=== PATIENT | male | born 1930 | race Caucasian/White ===

== ENCOUNTER 2021-08-23 07:34 | Inpatient (IN) ==
[2021-08-23] MEDS ORDERED: IOPAMIDOL 100 ML BOTTLE IV ONE (07:35)
--- NOTE | 2021-08-23 07:47 | Emergency Department Note ---
HPI General Chief complaint: Bleeding Other Stated complaint: rectal bleeding Time Seen by Provider: 08/23/21 07:46 Source: patient Mode of arrival: wheelchair Limitations: no limitations History of Present Illness HPI Narrative: 89-year-old male presenting with rectal bleeding. Patient reports red blood mixed with stool for the last 3 days. No melena. He is also endorses diffuse abdominal pain. Denies any prior history of GI bleeding. Not on anticoagulation. No vomiting, hematemesis, fever, dysuria, or hematuria. No other complaints. Related Data Home Medications Medication Instructions Recorded Confirmed ascorbic acid (vitamin C) 500 mg 500 mg PO QDAY cap 08/21/14 08/23/21 capsule,extended release omeprazole 20 mg capsule,delayed 20 mg PO QDAY 12/28/18 08/23/21 release hydrocodone 10 mg-acetaminophen 1 tab PO Q4 08/23/21 08/23/21 325 mg tablet Previous Rx's Medication Instructions Recorded blood-glucose meter (OneTouch #1 each 04/07/17 Ultra2 Meter) blood sugar diagnostic (OneTouch #300 each 04/13/17 Ultra Test) lancets 30 gauge (OneTouch Delica #300 each 04/13/17 Lancets) compr.stocking,knee,long,x-lrg #2 each 10/31/19 metolazone 2.5 mg tablet 2.5 mg PO QDAY #90 tab 07/17/20 torsemide 20 mg tablet 20 mg PO BID PRN #90 tab 08/13/20 losartan 50 mg tablet 50 mg PO QDAY #90 tab 09/30/20 metformin 500 mg tablet,extended 500 mg PO QPM #90 tab 01/13/21 release 24 hr potassium chloride 10 mEq 10 meq PO QDAY #1 tab 03/19/21 tablet,extended release clotrimazole-betamethasone 1 1 applic TOPICAL BID 14 Days #45 g 05/22/21 %-0.05 % topical cream oxycodone-acetaminophen 10 mg-325 1 tab PO Q12H PRN #56 tab 08/11/21 mg tablet 4ww with seat #1 ea 08/19/21 loperamide 2 mg capsule 2 mg PO Q6H PRN #30 cap 08/19/21 (Anti-Diarrheal (loperamide)) mometasone 50 mcg/actuation nasal 2 spray INTRANASAL QDAY #17 g 08/19/21 spray Allergies Allergy/AdvReac Type Severity Reaction Status Date / Time cephalexin Allergy Severe syncope Verified 08/23/21 07:38 sulfamethoxazole Allergy Severe syncope Verified 08/23/21 07:38 [From ] trimethoprim [From ] Allergy Severe syncope Verified 08/23/21 07:38 melatonin AdvReac Severe Tachycardia Verified 08/23/21 07:38 NSAIDS (Non-Steroidal AdvReac Severe GI bleed Verified 08/23/21 07:38 Anti-Inflamma aspirin AdvReac Intermediate Unknown Verified 08/23/21 07:38 morphine AdvReac Intermediate Anxiety Verified 08/23/21 07:38 valacyclovir AdvReac Mild Vomiting/Di Verified 08/23/21 07:38 arrhea Review of Systems ROS ROS Narrative: Narrative: Constitutional: Denies fever or chills ENT ED: Denies throat pain Cardiovascular: Denies chest pain Respiratory: Denies shortness of breath or cough Gastrointestinal: Reports abdominal pain and hematochezia; Denies nausea, vomiting or melena Genitourinary: Denies dysuria or hematuria Musculoskeletal: Denies back pain Integumentary: Denies rash Neurological: Denies headache Psychiatric: Denies anxiety Endocrine: Denies fatigue Hematological/Lymphatic: Denies easy bruising PFSH Narrative Patient History Narrative: Narrative: Medical/Surgical/Family History All Active Problems Pneumonia (Acute) Acute lower GI bleeding (Acute) Risk for falls (Acute) Skin tear of right forearm without complication (Acute) Medicare annual wellness visit, subsequent (Acute) Trigeminal neuralgia, postherpetic (Acute) Cellulitis of right leg (Acute) Diuretics causing adverse effect in therapeutic use (Acute) Otalgia, right ear (Acute) Herpes simplex ophthalmicus (Acute) Cellulitis and abscess of left leg (Acute) Knee effusion (Acute) Fall (Acute) Knee pain (Acute) Leg ulcer, left (Acute) Medicare annual wellness visit, initial (Acute) Venous insufficiency of both lower extremities (Acute) At risk for infection associated with ventilator (Acute) Head injury (Acute) Sternum pain (Acute) CKD (chronic kidney disease) stage 3, GFR 30-59 ml/min (Chronic) Shortness of breath (Acute) Thoracic back pain (Acute) Chronic pain of right elbow (Chronic) Chronic pain (Chronic) Pain in finger of right hand (Acute) Trochanteric bursitis of left hip (Chronic) Sinusitis, acute (Acute) Leg pain, right (Acute) Chronic use of opiate drug for therapeutic purpose (Chronic) Right leg swelling (Acute) Obesity (BMI 30.0-34.9) (Chronic) Laceration of right lower leg (Acute) Edema, peripheral (Acute) Elevated serum creatinine (Acute) Stasis dermatitis of both legs (Acute) Onychomycosis (Chronic) Venous stasis (Chronic) Callus of foot (Acute) Hoarseness (Chronic) Bronchitis (Acute) Fall (Acute) Multiple contusions (Acute) Skin tear (Acute) Upper respiratory infection (Acute) ILD (interstitial lung disease) (Chronic) Pulmonary fibrosis (Chronic) CHF (congestive heart failure) (Chronic) Left foot pain (Chronic) Rib fractures (Chronic) Cough (Acute) Aseptic loosening of prosthetic joint (Chronic) Laceration of right upper extremity (Acute) Muscle spasm (Chronic) Tinea cruris (Chronic) Skin lesion of back (Chronic) Bradycardia (Chronic) Low Back Pain (Chronic) Numbness and tingling in left arm (Chronic) Diarrhea (Chronic) Pitting edema (Chronic) Occipital neuritis (Chronic) Pain in left testicle (Chronic) Neck pain (Chronic) Metabolic Syndrome X (Chronic) Actinic keratosis (Chronic) Right shoulder injury (Chronic) Sprain of shoulder, right (Chronic) Abrasion of right forearm (Acute) Greater trochanteric bursitis of right hip (Chronic) Back Pain (Chronic) Deep vein thrombosis (DVT) (Chronic) Itching (Chronic) Skin Lesion (Chronic) Right shoulder pain (Chronic) Chronic venous insufficiency (Chronic) Leg edema (Chronic) Tinnitus (Chronic) Spondylolysis, 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) Rupture long head biceps tendon (Chronic) Rotator cuff syndrome of left shoulder (Chronic) Raynauds syndrome (Chronic) Prostate hyperplasia with urinary obstruction (Chronic) Peripheral vascular disease (Chronic) Peripheral neuropathy (Chronic) Osteoarthritis of spine (Chronic 08/01/13) Metabolic syndrome X (Chronic) Displacement of lumbar intervertebral disc without myelopathy (Chronic 08/01/13) Lateral epicondylitis (Chronic 05/03/12) Insomnia (Chronic 05/03/12) Hypertension, essential (Chronic) Hyperlipidemia (Chronic) Ventral hernia, recurrent (Chronic) Incisional hernia (Chronic) Glaucoma (Chronic 06/13/13) Gastroesophageal reflux (Chronic) Foraminal stenosis of lumbar region (Chronic) Environmental allergies (Chronic 12/02/12) Edema (Chronic 06/28/12) Dysphonia (Chronic) Diverticulosis of colon (Chronic) Diabetes mellitus, type II (Chronic) Degenerative joint disease (Chronic) Deep vein thrombosis (DVT) (Chronic 07/18/14) Kidney cysts (Chronic) Colon polyp (Chronic 08/09/14) Colon adenoma (Chronic) Bursitis of hip (Chronic) Garcia's esophagus (Chronic) Atrophic kidney (Chronic) Atrial fibrillation (Chronic) Anemia (Chronic) 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 Actinic keratitis (07/04/14) 07-04-2014-Right 2-3 dorsal web space, 11-08-2012-nose, 06-11-2013- right side of nose Actinic keratosis One lesion right ear treated with liquid nitrogen Acute narcotic withdrawal Anemia D/T diverticular bleed Aseptic loosening of prosthetic joint Suspected loosening of right radial head prosthesis At risk for infection associated with ventilator Atrial fibrillation Frequent PVCs. Atrophic kidney Left Garcia's esophagus Bradycardia [place] of the RLE Bursitis of hip Carpal tunnel syndrome, bilateral Cellulitis 09/11/14 left leg CHF (congestive heart failure) Diastolic Continue current diuretics, which is metolazone 2.5 mg daily followed by torsemide 20 mg twice daily Consider getting him back in with cardiology, as he has not seen them for nearly 2 years Chronic pain of right elbow Patient states worsening. Multiple tender points. Seems that he has fibromyalgia, and increased nociception likely due to long- term opiate use for pain. X-rays from a year ago showed possible loosening of the prosthesis of the right elbow. I do not have the x-rays from 2 months ago, but will request the records. MR right elbow without contrast ordered today. Continue massage therapy. Recommend physical therapy, patient refuses. Continue pain management. Chronic use of opiate drug for therapeutic purpose Chronic venous insufficiency Bilateral legs CKD (chronic kidney disease) stage 3, GFR 30-59 ml/min With acute mild elevation of creatinine in ER 2 weeks ago We will recheck renal panel today and consider adjusting diuretics Colon adenoma 08/09/14 Colon polyp (08/09/14) TA-Dr. Lazcano Cough Cyst (06/13/13) 1-cm cyst on perineum Deep vein thrombosis (DVT) (07/18/14) Bilateral Deep vein thrombosis (DVT) H/O Degenerative joint disease Dehydration Diabetes mellitus, type II Well-controlled on metformin ER 500 mg every afternoon Diabetic diet recommended Follow-up with ophthalmology frequently Diabetic foot exam today. He does have numbness, callus, and foot deformity. His often checks his feet for wounds. He sees podiatry frequently for callus and toenail care. Check A1c and HAWK today Diarrhea Possibly post-cholecystectomy associated Displacement of lumbar intervertebral disc without myelopathy (08/01/13) Diverticulosis of colon history of hemorrhage Dysphonia Edema (06/28/12) Environmental allergies (12/02/12) possible long-term history of morphine allergy Epidermoid cyst Epididymitis, left mild Escherichia coli (E. coli) infection (12/14/13) Dr. House Fall Foraminal stenosis of lumbar region L3-4 Gastroesophageal reflux Gastrointestinal tract hemorrhage (06/13/13) Diverticular bleed. Severe. Glaucoma (06/13/13) Herpes simplex ophthalmicus Hyperlipidemia Hypertension, essential Well-controlled on losartan 50 mg daily ILD (interstitial lung disease) Mild. Chest x-ray 02/07/2018. Ileus 1. opioid induced ileus-managed with laxatives and tapering opioids. Patient doing well. discharge home in stable state. 09/21/14. 2. Intractable nausea vomiting secondary to opioids. Resolved 3DM type II stable on home meds 4. DJD on home meds 5. History of A. fib on anticoagulation 6. History of CAD remains stable Ileus, postoperative (12/14/13) Now resolved- Dr. House Incisional hernia Insomnia (05/03/12) Itching Kidney cysts Multiple on right kidney Knee effusion Improved per patient Knee pain Stop Dilaudid, resume chronic pain medications Patient should have 3 Dilaudid left in case of breakthrough pain in the middle of the night Laceration of arm Approximately 3 inch skin slip left upper arm. Clean. Not infected at present Lateral epicondylitis (05/03/12) Leg edema Compression stockings recommended daily. Elevate legs as much as possible, above the level of the heart. Avoid sodium in diet Increase torsemide to 60 mg daily metolazone to 5 mg daily. Increase potassium chloride to 20 mEq daily. We will follow-up via phone in 3 days. Low Back Pain Significant degenerative disc disease. Medicare annual wellness visit, initial Medicare annual wellness visit, subsequent Metabolic syndrome X Metabolic Syndrome X Nausea and vomiting Neck pain Osteoarthritic and myofascial Obesity (BMI 30.0-34.9) Occipital neuritis Greater occipital neuritis. Left side greater than right. Osteoarthritis of spine (08/01/13) Severe cervical and LS spine Otalgia, right ear Pain in finger of right hand X-ray right hand Pancreatitis (12/14/13) Biliary Pancreatitis -Dr. Jiang Perineal abscess (06/29/13) Peripheral neuropathy Diabetic Peripheral vascular disease Pitting edema Bilateral lower extremities Pleural effusion (06/28/12) Prostate hyperplasia with urinary obstruction Pulmonary fibrosis Mild. Raynauds syndrome Remote - left 3rd finger Rib fractures Right sixth and seventh ribs anterolaterally Right shoulder injury Right shoulder pain impingement and osteoarthritis. Rotator cuff syndrome of left shoulder chronic Rupture long head biceps tendon Sepsis H/O Skin Lesion Cystic structure right mid back laterally. 1.1 x 1.2 cm. Excised. Skin tear of right forearm without complication Spondylolysis, lumbosacral (08/08/13) Dr. 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 Squamous cell carcinoma in situ. Tinnitus Venous insufficiency of both lower extremities Ventral hernia, recurrent Vomiting Surgical History H/O colectomy (06/12/04) Left with primary anastomosis for diverticular bleed H/O colonoscopy (08/09/14) 08-09-2014-TA 03-21-2011-Hemorrhoids. Hyperplastic appearing polyps. Diverticula. H/O elbow surgery Dr. Ballesteros H/O esophagogastroduodenoscopy (12/23/10) Garcia's esophagus. Indefinite for dysplasia. Focal eosinophils present within squamous mucosa. H/O prior ablation treatment 02/05/17 Right greater saphenous vein ablation H/O repair of left rotator cuff (03/11/04) H/O repair of right rotator cuff 2011 Dr. Avery H/O thumb surgery (08/08/13) Dr. Ballesteros H/O toe surgery Right hammer toe surgery History of carpal tunnel surgery of right wrist History of cataract surgery Bilateral Hx of cholecystectomy (12/20/13) Open- Dr. Loya S/P IVC filter (07/19/14) S/P PICC central line placement (06/04/04) Status post incision and drainage (06/23/13) Perianal abcess Family History Father , at 61 Acute myocardial infarction Uncle Malignant neoplasm of prostate Social History Smoking Status: Former smoker Alcohol Intake Frequency: holiday/special occasion only Substance Use: does not use Exam Narrative Narrative: Narrative: General Limitations: no limitations General appearance: Present alert and in no apparent distress Head Head: Present atraumatic and normocephalic Eye Eye: Present normal appearance and EOMI; Absent scleral icterus or conjunctival injection ENT ENT: Present mucous membranes moist Neck Neck: Present trachea midline Chest Chest: Present symmetric chest wall rise Respiratory Respiratory: Present normal lung sounds bilaterally; Absent respiratory distress, rales/crackles, wheezes, stridor or accessory muscle use Cardiovascular Cardiovascular: Present regular rate and normal rhythm; Absent systolic murmur or diastolic murmur Adbominal Abdominal: Present soft and tenderness (Diffuse abdominal tenderness to exam, mostly in the periumbilical area); Absent distention, guarding, rebound, rigidity or organomegaly Rectal Rectal: Present normal rectal tone, heme (+) stool, bloody stool and other (terri-anal irritation noted); Absent hemorrhoids, mass or prostate tenderness Extremities Extremities: Present normal inspection; Absent pretibial edema Back Back: Absent CVA tenderness (R) or CVA tenderness (L) Neurological Neurological: Present alert and oriented X3; Absent motor sensory deficit Psychiatric Psychiatric: Present normal affect and normal mood Skin Skin: Present warm (WNL) and dry Course Consultations Consultation #1: Dr. Cuadra, general surgery Time: 13:00 Consultation #2: Dr. Tomas, hospitalist Time: 14:00 Vital Signs Vital signs: Vital Signs Pulse Rate 68 08/23/21 07:35 Respiratory Rate 16 08/23/21 07:35 Blood Pressure 147/93 08/23/21 07:35 Pulse Oximetry (%) 94 08/23/21 07:35 Temperature 97.4 F 08/23/21 15:22 Pulse Rate 76 08/23/21 15:22 Respiratory Rate 22 08/23/21 15:22 Blood Pressure 120/74 08/23/21 15:22 Pulse Oximetry (%) 94 08/23/21 15:22 MDM MDM Narrative Medical decision making narrative: 89-year-old male presenting with rectal bleeding and abdominal pain. Vital signs initially stable but he was noted to desat to the high 80s on RA. Placed on O2 via NC. He does have gross blood on rectal exam. Will obtain labs, CT, and reevaluate. CT abdomen with no evidence of acute bleeding. Hemoglobin is 12.5 which appears down from his baseline. Chest x-ray appears to show bilateral pneumonia. IV Zosyn ordered. I spoke with Dr. Cuadra of general surgery who is agreeable to consult on the patient for his likely lower GI bleeding. Patient endorsed to Dr. Tomas, hospitalist, for admission. Lab Data Lab results reviewed: Yes I reviewed the patient's lab results. Result diagrams: 08/23/21 08:19 08/23/21 08:19 Labs: Lab Results 08/23/21 08/23/21 08/23/21 Range/Units 08:09 08:09 08:09 WBC (4.5-11.0) K/mcL RBC (4.63-6.08) M/mcL Hgb (13.7-17.5) g/dL Hct (40.1-51.0) % MCV (80.0-100.0) fL MCH (26.0-34.0) pg MCHC (31.0-36.0) g/dL RDW (11.5-14.5) % Plt Count (140-440) K/mcL MPV (7.4-10.4) fL Neut % (Auto) (38.0-78.0) % Lymph % (Auto) (15.5-49.0) % Villalba % (Auto) (1.0-12.0) % Eos % (Auto) (0.0-7.0) % Baso % (Auto) (0.0-2.0) % Lymph # (Auto) (1.50-4.80) K/mcL Villalba # (Auto) (0.10-0.90) K/mcL Eos # (Auto) (0.00-0.70) K/mcL Baso # (Auto) (0.00-0.30) K/mcL Seg Neutrophils % 65 (38-78) % Band Neutrophils % 11 H (0-10) % Lymphocytes % 9 L (15-49) % Monocytes % (Manual) 12 (1-12) % Eosinophils % (Manual) 3 (0-7) % Absolute Neutrophils (1.80-8.00) K/mcL Platelet Estimate Normal (Normal) RBC Morphology Normal (Normal) PT (11.9-14.5) sec INR (0.9-1.1) APTT (20.0-37.0) sec Sodium (133-145) mmol/L Potassium (3.3-5.1) mmol/L Chloride (96-108) mmol/L Carbon Dioxide (22-30) mmol/L Anion Gap (8.0-16.0) BUN (8-23) mg/dL Creatinine (0.7-1.2) mg/dL POC Creatinine GFR Calculation Glucose (70-105) mg/dL Calcium (8.6-10.4) mg/dL Total Bilirubin (0.1-1.0) mg/dL AST (<40) U/L ALT (<40) U/L Alkaline Phosphatase (39-117) U/L C-Reactive Protein 2.80 H (0.03-0.80) mg/dL Total Protein (5.9-8.4) gm/dL Albumin (3.2-5.2) gm/dL Globulin (2.2-3.7) gm/dL Albumin/Globulin Ratio (1.0-2.3) Lipase (7-60) U/L Procalcitonin 0.11 H (<0.10) ng/mL 08/23/21 08/23/21 08/23/21 Range/Units 08:19 08:19 08:19 WBC 9.2 (4.5-11.0) K/mcL RBC 4.02 L (4.63-6.08) M/mcL Hgb 12.5 L (13.7-17.5) g/dL Hct 39.3 L (40.1-51.0) % MCV 97.8 (80.0-100.0) fL MCH 31.1 (26.0-34.0) pg MCHC 31.8 (31.0-36.0) g/dL RDW 13.2 (11.5-14.5) % Plt Count 287 (140-440) K/mcL MPV 9.6 (7.4-10.4) fL Neut % (Auto) 72.0 (38.0-78.0) % Lymph % (Auto) 10.6 L (15.5-49.0) % Villalba % (Auto) 13.2 H (1.0-12.0) % Eos % (Auto) 3.7 (0.0-7.0) % Baso % (Auto) 0.5 (0.0-2.0) % Lymph # (Auto) 0.97 L (1.50-4.80) K/mcL Villalba # (Auto) 1.21 H (0.10-0.90) K/mcL Eos # (Auto) 0.34 (0.00-0.70) K/mcL Baso # (Auto) 0.05 (0.00-0.30) K/mcL Seg Neutrophils % (38-78) % Band Neutrophils % (0-10) % Lymphocytes % (15-49) % Monocytes % (Manual) (1-12) % Eosinophils % (Manual) (0-7) % Absolute Neutrophils 6.59 (1.80-8.00) K/mcL Platelet Estimate (Normal) RBC Morphology (Normal) PT 15.5 H (11.9-14.5) sec INR 1.2 H (0.9-1.1) APTT 35.5 (20.0-37.0) sec Sodium 137 (133-145) mmol/L Potassium 4.3 (3.3-5.1) mmol/L Chloride 101 (96-108) mmol/L Carbon Dioxide 26 (22-30) mmol/L Anion Gap 10.0 (8.0-16.0) BUN 18 (8-23) mg/dL Creatinine 1.5 H (0.7-1.2) mg/dL POC Creatinine GFR Calculation 41 Glucose 125 H (70-105) mg/dL Calcium 8.6 (8.6-10.4) mg/dL Total Bilirubin 0.4 (0.1-1.0) mg/dL AST 11 (<40) U/L ALT < 5 (<40) U/L Alkaline Phosphatase 56 (39-117) U/L C-Reactive Protein (0.03-0.80) mg/dL Total Protein 6.2 (5.9-8.4) gm/dL Albumin 3.1 L (3.2-5.2) gm/dL Globulin 3.1 (2.2-3.7) gm/dL Albumin/Globulin Ratio 1.0 (1.0-2.3) Lipase (7-60) U/L Procalcitonin (<0.10) ng/mL 08/23/21 08/23/21 08/23/21 Range/Units 08:19 08:19 08:32 WBC (4.5-11.0) K/mcL RBC (4.63-6.08) M/mcL Hgb (13.7-17.5) g/dL Hct (40.1-51.0) % MCV (80.0-100.0) fL MCH (26.0-34.0) pg MCHC (31.0-36.0) g/dL RDW (11.5-14.5) % Plt Count (140-440) K/mcL MPV (7.4-10.4) fL Neut % (Auto) (38.0-78.0) % Lymph % (Auto) (15.5-49.0) % Villalba % (Auto) (1.0-12.0) % Eos % (Auto) (0.0-7.0) % Baso % (Auto) (0.0-2.0) % Lymph # (Auto) (1.50-4.80) K/mcL Villalba # (Auto) (0.10-0.90) K/mcL Eos # (Auto) (0.00-0.70) K/mcL Baso # (Auto) (0.00-0.30) K/mcL Seg Neutrophils % (38-78) % Band Neutrophils % (0-10) % Lymphocytes % (15-49) % Monocytes % (Manual) (1-12) % Eosinophils % (Manual) (0-7) % Absolute Neutrophils (1.80-8.00) K/mcL Platelet Estimate (Normal) RBC Morphology (Normal) PT (11.9-14.5) sec INR (0.9-1.1) APTT (20.0-37.0) sec Sodium (133-145) mmol/L Potassium (3.3-5.1) mmol/L Chloride (96-108) mmol/L Carbon Dioxide (22-30) mmol/L Anion Gap (8.0-16.0) BUN (8-23) mg/dL Creatinine (0.7-1.2) mg/dL POC Creatinine 1.4 H GFR Calculation Glucose (70-105) mg/dL Calcium (8.6-10.4) mg/dL Total Bilirubin (0.1-1.0) mg/dL AST (<40) U/L ALT (<40) U/L Alkaline Phosphatase (39-117) U/L C-Reactive Protein (0.03-0.80) mg/dL Total Protein (5.9-8.4) gm/dL Albumin (3.2-5.2) gm/dL Globulin (2.2-3.7) gm/dL Albumin/Globulin Ratio (1.0-2.3) Lipase 16 (7-60) U/L Procalcitonin (<0.10) ng/mL ED POC Tests ED POC Tests: [place] - SARS Antigen Negative Radiology Data Radiology results reviewed: Yes I reviewed the patient's radiology results. Radiology results narrative: CXR: bilateral pneumonia, per my read Ordering Physician:Brennan Moss M.D. Date of Service:08/23/21 Procedure(s):XR chest 2V CLINICAL INFORMATION: Pneumonia COMPARISON: Two-view chest 05/04/2018 and portable chest 08/01/2021 TECHNIQUE: PA and Lateral views FINDINGS: Mild cardiomegaly is unchanged. Mediastinum and pulmonary vessels are normal. Moderate patchy infiltrates have progressed considerably in both mid and lower lungs since the comparison x-ray three weeks ago. Small bilateral pleural effusions appreciated. IMPRESSION: Moderate patchy infiltrates in both mid and lower lungs progressing considerably since chest x-ray three weeks ago. Consider aspiration or, less likely, infection. Interpreted and Authenticated by: Lm Brown 08/23/21 Ordering Physician:Brennan Moss M.D. Date of Service:08/23/21 Procedure(s):CT abdomen pelvis w con CLINICAL INFORMATION: GI bleed COMPARISON: Chest CT 05/30/2019.. Pelvic CT 08/25/2011 TECHNIQUE: Following enteric contrast, 80 cc of Isovue-[id number] were injected intravenously, and 60 seconds later, 0.625 mm helical slices were obtained from the mid heart through the subtrochanteric regions. Following reconstruction, 2.5 mm sagittal, coronal and axial reformatted images were processed and reviewed at bone, lung and soft tissue windows. Five minutes later, 0.625 mm helical slices were obtained from the mid heart through the kidneys and viewed at soft tissue windows.The exam was performed using radiation dose optimization techniques including, but not limited to, automated exposure control, adjustment of the mA and/or kV according to patient size and use of iterative reconstruction technique. FINDINGS: The lung bases show moderate consolidated infiltrates scattered within the visualized lower lobes, right middle lobe and lingula. Tiny bilateral pleural effusions noted. The visualized heart is moderately enlarged and there is calcification in the mitral valve. Abdominal images show mild fatty change within the liver, but no focal hepatic lesion. The gallbladder is surgically absent. Common bile duct is mildly dilated-12 mm due to postcholecystectomy state. A cm periampullary diverticulum invaginates the medial pancreatic head contributing to extrinsic impingement of the intrapancreatic common bile duct. The pancreas is markedly atrophic and there are multiple small cysts within the pancreatic parenchyma ranging up to 2.9 cm. These show slight increase in size and number from the comparison examination 05/30/2019. The spleen, both adrenal glands and aorta, including aortic branches, are normal in size configuration and attenuation without focal lesion. Moderate atrophy of the left kidney noted: 5.5 cm in length. There is compensatory hypertrophy of the right kidney which spans 13 cm. There is scattered cysts within both kidneys, predominantly on the right, which range up to 4.5 cm. There are two isointense lesions projecting from the lateral cortex mid right kidney: 14 and 5 mm respectively. These are likely hyperdense cysts but may require ultrasound to be certain they're not solid. Nonobstructing stones seen within the calyces of the right kidney: 4.8 mm superior calyx 8 mm mid calyx, 2 mm mid calyx. There are no left-sided stones. Mild left hydronephrosis appreciated ostensibly related mild congenital UPJ narrowing. The prostate is mildly enlarged spanning 4.7 cm in diameter. Asymmetric enlargement of the right peripheral zone was also noted on pelvic CT 08/25/2011. This is likely benign hypertrophy. Urinary bladder is unremarkable. Small ureterocele seen in the distal left ureteral insertion. Stomach, small bowel, appendix and large bowel are grossly normal. No evidence for GI bleed. Bone windows show no osseous abnormality IMPRESSION: 1. No CT evidence for GI blood loss source. 2. Moderate alveolar infiltrates scattered within the both visualized lower, right middle lobe and lingula. 3. Marked pancreatic atrophy with multiple pancreatic cysts which show slight increase in size and number from a comparison chest CT from 05/30/2019. This is likely clinically insignificant this patient's age. 4. Small nonobstructing stones the calyces of the right kidney ranging up to 8 mm. Scattered simple cysts in both kidneys. Two isointense lesions 14 and 5 mm lateral mid right kidney. These are likely hyperdense cysts, but exclusion of solid lesion would require ultrasound. 5. Moderate atrophy left kidney with compensatory hypertrophy of the right kidney. Mild left hydronephrosis noted. 6. Mild prostate enlargement with asymmetric enlargement of the right peripheral zone. This is unchanged 2011 Interpreted and Authenticated by: Lm Brown 08/23/21 Discharge Plan Patient/Caregiver Discharge Instructions Pt seen by AGRONOMY MANAGER/PA only: No Clinical Impression: Pneumonia, Acute lower GI bleeding Patient Disposition: Xfer As Inpt ([facility]) Condition: Fair Discharge Date/Time: 08/23/21 15:12
[2021-08-23] MEDS ORDERED: 0.9 % SODIUM CHLORIDE 250 ML IV SCH (08:15)
[2021-08-23 09:03] LABS: Basophils # (Auto) 0.05 K/mcL (0.00-0.30); Basophils % (Auto) 0.5 % (0.0-2.0); Eosinophils # (Auto) 0.34 K/mcL (0.00-0.70); Eosinophils % (Auto) 3.7 % (0.0-7.0); Hematocrit 39.3 % (40.1-51.0); Hemoglobin 12.5 g/dL (13.7-17.5); Lymphocytes # (Auto) 0.97 K/mcL (1.50-4.80); Lymphocytes % (Auto) 10.6 % (15.5-49.0); Mean Cell Volume 97.8 fL (80.0-100.0); Mean Corpuscular HGB Conc 31.8 g/dL (31.0-36.0); Mean Platelet Volume 9.6 fL (7.4-10.4); Monocytes # (Auto) 1.21 K/mcL (0.10-0.90); Monocytes % (Auto) 13.2 % (1.0-12.0); Platelet Count 287 K/mcL (140-440); RBC 4.02 M/mcL (4.63-6.08); Red Cell Distribution Width 13.2 % (11.5-14.5); WBC 9.2 K/mcL (4.5-11.0)
[2021-08-23 09:12] LABS: INR 1.2 (0.9-1.1); Partial Thromboplastin Time 35.5 sec (20.0-37.0); Prothrombin Time 15.5 sec (11.9-14.5)
[2021-08-23] MEDS ORDERED: 0.9 % SODIUM CHLORIDE 1,000 ML IV ONE ×2 (09:17→09:18)
[2021-08-23 09:24] LABS: ALT/SGPT < 5 U/L (<40); AST/SGOT 11 U/L (<40); Albumin 3.1 gm/dL (3.2-5.2); Alkaline Phosphatase 56 U/L (39-117); Bilirubin,Total 0.4 mg/dL (0.1-1.0); Blood Urea Nitrogen 18 mg/dL (8-23); Calcium 8.6 mg/dL (8.6-10.4); Carbon Dioxide 26 mmol/L (22-30); Chloride 101 mmol/L (96-108); Globulin 3.1 gm/dL (2.2-3.7); Glomerular Filtration Rate 41; Glucose 125 mg/dL (70-105)
[2021-08-23] MEDS ORDERED: PIPERACILLIN SODIUM/TAZOBACTAM 3.375 GM in DEXTROSE 5% IN WATER 50 ML IV ONE (12:42)
[2021-08-23] MEDS ORDERED: HYDROcodone/APAP 5/325MG TABLET PO ONE (13:35)
--- NOTE | 2021-08-23 13:45 | Internal Med History&Physical ---
HPI History of Present Illness Patient information: Note initiated : 08/23/21 at 1:36 pm Service Date, if different from initiated Date: [] Patient: Omar Leal 89 y/o M admitted on for rectal bleeding. Chief Complaint: [] History of present illness: Mr. Leal is a 89 year old M Presents today with rectal bleeding. Per the he seems to be better historian and her . She states that yesterday he developed bleeding while he was having bowel movement yesterday and she said it was mixed in with the stool. She said it is neither bright red or melanotic. He complains of some generalized achy abdominal pain. He had another bloody bowel movement this morning and then another 1 not too long after that. CT scan of the abdomen was done which I believe did not show anything significant although waiting for the official report. He is also has recently had COVID and has been getting over that however he has had a worsening cough for the past few days. He denies shortness of breath. Chest x-ray in the ED showed bilateral pneumonia and he was hypoxic in the 80s on room air. Cough is productive of thick green phlegm. He is generally weak and seems to have been slowly declining over the past year. He uses a cane or walker to ambulate but has been using the walker more lately. Dr. Cuadra was contacted for the GI bleed regarding endoscopy. Patient started on antibiotics. Review of Systems: Pertinent positives as above. Denies headache/fever/chills/nausea/vomiting/chest or abdominal pain/dyspnea. Remaining 10 point review of system reviewed negative PFSH PFSH All Active Problems Risk for falls (Acute) Skin tear of right forearm without complication (Acute) Medicare annual wellness visit, subsequent (Acute) Trigeminal neuralgia, postherpetic (Acute) Cellulitis of right leg (Acute) Diuretics causing adverse effect in therapeutic use (Acute) Otalgia, right ear (Acute) Herpes simplex ophthalmicus (Acute) Cellulitis and abscess of left leg (Acute) Knee effusion (Acute) Fall (Acute) Knee pain (Acute) Leg ulcer, left (Acute) Medicare annual wellness visit, initial (Acute) Venous insufficiency of both lower extremities (Acute) At risk for infection associated with ventilator (Acute) Head injury (Acute) Sternum pain (Acute) CKD (chronic kidney disease) stage 3, GFR 30-59 ml/min (Chronic) Shortness of breath (Acute) Thoracic back pain (Acute) Chronic pain of right elbow (Chronic) Chronic pain (Chronic) Pain in finger of right hand (Acute) Trochanteric bursitis of left hip (Chronic) Sinusitis, acute (Acute) Leg pain, right (Acute) Chronic use of opiate drug for therapeutic purpose (Chronic) Right leg swelling (Acute) Obesity (BMI 30.0-34.9) (Chronic) Laceration of right lower leg (Acute) Edema, peripheral (Acute) Elevated serum creatinine (Acute) Stasis dermatitis of both legs (Acute) Onychomycosis (Chronic) Venous stasis (Chronic) Callus of foot (Acute) Hoarseness (Chronic) Bronchitis (Acute) Fall (Acute) Multiple contusions (Acute) Skin tear (Acute) Upper respiratory infection (Acute) ILD (interstitial lung disease) (Chronic) Pulmonary fibrosis (Chronic) CHF (congestive heart failure) (Chronic) Left foot pain (Chronic) Rib fractures (Chronic) Cough (Acute) Aseptic loosening of prosthetic joint (Chronic) Laceration of right upper extremity (Acute) Muscle spasm (Chronic) Tinea cruris (Chronic) Skin lesion of back (Chronic) Bradycardia (Chronic) Low Back Pain (Chronic) Numbness and tingling in left arm (Chronic) Diarrhea (Chronic) Pitting edema (Chronic) Occipital neuritis (Chronic) Pain in left testicle (Chronic) Neck pain (Chronic) Metabolic Syndrome X (Chronic) Actinic keratosis (Chronic) Right shoulder injury (Chronic) Sprain of shoulder, right (Chronic) Abrasion of right forearm (Acute) Greater trochanteric bursitis of right hip (Chronic) Back Pain (Chronic) Deep vein thrombosis (DVT) (Chronic) Itching (Chronic) Skin Lesion (Chronic) Right shoulder pain (Chronic) Chronic venous insufficiency (Chronic) Leg edema (Chronic) Tinnitus (Chronic) Spondylolysis, 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) Rupture long head biceps tendon (Chronic) Rotator cuff syndrome of left shoulder (Chronic) Raynauds syndrome (Chronic) Prostate hyperplasia with urinary obstruction (Chronic) Peripheral vascular disease (Chronic) Peripheral neuropathy (Chronic) Osteoarthritis of spine (Chronic 08/01/13) Metabolic syndrome X (Chronic) Displacement of lumbar intervertebral disc without myelopathy (Chronic 08/01/13) Lateral epicondylitis (Chronic 05/03/12) Insomnia (Chronic 05/03/12) Hypertension, essential (Chronic) Hyperlipidemia (Chronic) Ventral hernia, recurrent (Chronic) Incisional hernia (Chronic) Glaucoma (Chronic 06/13/13) Gastroesophageal reflux (Chronic) Foraminal stenosis of lumbar region (Chronic) Environmental allergies (Chronic 12/02/12) Edema (Chronic 06/28/12) Dysphonia (Chronic) Diverticulosis of colon (Chronic) Diabetes mellitus, type II (Chronic) Degenerative joint disease (Chronic) Deep vein thrombosis (DVT) (Chronic 07/18/14) Kidney cysts (Chronic) Colon polyp (Chronic 08/09/14) Colon adenoma (Chronic) Bursitis of hip (Chronic) Garcia's esophagus (Chronic) Atrophic kidney (Chronic) Atrial fibrillation (Chronic) Anemia (Chronic) 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 Actinic keratitis (07/04/14) 07-04-2014-Right 2-3 dorsal web space, 11-08-2012-nose, 06-11-2013- right side of nose Actinic keratosis One lesion right ear treated with liquid nitrogen Acute narcotic withdrawal Anemia D/T diverticular bleed Aseptic loosening of prosthetic joint Suspected loosening of right radial head prosthesis At risk for infection associated with ventilator Atrial fibrillation Frequent PVCs. Atrophic kidney Left Garcia's esophagus Bradycardia [place] of the RLE Bursitis of hip Carpal tunnel syndrome, bilateral Cellulitis 09/11/14 left leg CHF (congestive heart failure) Diastolic Continue current diuretics, which is metolazone 2.5 mg daily followed by torsemide 20 mg twice daily Consider getting him back in with cardiology, as he has not seen them for nearly 2 years Chronic pain of right elbow Patient states worsening. Multiple tender points. Seems that he has fibromyalgia, and increased nociception likely due to long- term opiate use for pain. X-rays from a year ago showed possible loosening of the prosthesis of the right elbow. I do not have the x-rays from 2 months ago, but will request the records. MR right elbow without contrast ordered today. Continue massage therapy. Recommend physical therapy, patient refuses. Continue pain management. Chronic use of opiate drug for therapeutic purpose Chronic venous insufficiency Bilateral legs CKD (chronic kidney disease) stage 3, GFR 30-59 ml/min With acute mild elevation of creatinine in ER 2 weeks ago We will recheck renal panel today and consider adjusting diuretics Colon adenoma 08/09/14 Colon polyp (08/09/14) TA-Dr. Lazcano Cough Cyst (06/13/13) 1-cm cyst on perineum Deep vein thrombosis (DVT) (07/18/14) Bilateral Deep vein thrombosis (DVT) H/O Degenerative joint disease Dehydration Diabetes mellitus, type II Well-controlled on metformin ER 500 mg every afternoon Diabetic diet recommended Follow-up with ophthalmology frequently Diabetic foot exam today. He does have numbness, callus, and foot deformity. His often checks his feet for wounds. He sees podiatry frequently for callus and toenail care. Check A1c and HAWK today Diarrhea Possibly post-cholecystectomy associated Displacement of lumbar intervertebral disc without myelopathy (08/01/13) Diverticulosis of colon history of hemorrhage Dysphonia Edema (06/28/12) Environmental allergies (12/02/12) possible long-term history of morphine allergy Epidermoid cyst Epididymitis, left mild Escherichia coli (E. coli) infection (12/14/13) Dr. House Fall Foraminal stenosis of lumbar region L3-4 Gastroesophageal reflux Gastrointestinal tract hemorrhage (06/13/13) Diverticular bleed. Severe. Glaucoma (06/13/13) Herpes simplex ophthalmicus Hyperlipidemia Hypertension, essential Well-controlled on losartan 50 mg daily ILD (interstitial lung disease) Mild. Chest x-ray 02/07/2018. Ileus 1. opioid induced ileus-managed with laxatives and tapering opioids. Patient doing well. discharge home in stable state. 09/21/14. 2. Intractable nausea vomiting secondary to opioids. Resolved 3DM type II stable on home meds 4. DJD on home meds 5. History of A. fib on anticoagulation 6. History of CAD remains stable Ileus, postoperative (12/14/13) Now resolved- Dr. House Incisional hernia Insomnia (05/03/12) Itching Kidney cysts Multiple on right kidney Knee effusion Improved per patient Knee pain Stop Dilaudid, resume chronic pain medications Patient should have 3 Dilaudid left in case of breakthrough pain in the middle of the night Laceration of arm Approximately 3 inch skin slip left upper arm. Clean. Not infected at present Lateral epicondylitis (05/03/12) Leg edema Compression stockings recommended daily. Elevate legs as much as possible, above the level of the heart. Avoid sodium in diet Increase torsemide to 60 mg daily metolazone to 5 mg daily. Increase potassium chloride to 20 mEq daily. We will follow-up via phone in 3 days. Low Back Pain Significant degenerative disc disease. Medicare annual wellness visit, initial Medicare annual wellness visit, subsequent Metabolic syndrome X Metabolic Syndrome X Nausea and vomiting Neck pain Osteoarthritic and myofascial Obesity (BMI 30.0-34.9) Occipital neuritis Greater occipital neuritis. Left side greater than right. Osteoarthritis of spine (08/01/13) Severe cervical and LS spine Otalgia, right ear Pain in finger of right hand X-ray right hand Pancreatitis (12/14/13) Biliary Pancreatitis -Dr. Jiang Perineal abscess (06/29/13) Peripheral neuropathy Diabetic Peripheral vascular disease Pitting edema Bilateral lower extremities Pleural effusion (06/28/12) Prostate hyperplasia with urinary obstruction Pulmonary fibrosis Mild. Raynauds syndrome Remote - left 3rd finger Rib fractures Right sixth and seventh ribs anterolaterally Right shoulder injury Right shoulder pain impingement and osteoarthritis. Rotator cuff syndrome of left shoulder chronic Rupture long head biceps tendon Sepsis H/O Skin Lesion Cystic structure right mid back laterally. 1.1 x 1.2 cm. Excised. Skin tear of right forearm without complication Spondylolysis, lumbosacral (08/08/13) Dr. 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 Squamous cell carcinoma in situ. Tinnitus Venous insufficiency of both lower extremities Ventral hernia, recurrent Vomiting Surgical History H/O colectomy (06/12/04) Left with primary anastomosis for diverticular bleed H/O colonoscopy (08/09/14) 08-09-2014-TA 03-21-2011-Hemorrhoids. Hyperplastic appearing polyps. Diverticula. H/O elbow surgery Dr. Ballesteros H/O esophagogastroduodenoscopy (12/23/10) Garcia's esophagus. Indefinite for dysplasia. Focal eosinophils present within squamous mucosa. H/O prior ablation treatment 02/05/17 Right greater saphenous vein ablation H/O repair of left rotator cuff (03/11/04) H/O repair of right rotator cuff 2011 Dr. Avery H/O thumb surgery (08/08/13) Dr. Ballesteros H/O toe surgery Right hammer toe surgery History of carpal tunnel surgery of right wrist History of cataract surgery Bilateral Hx of cholecystectomy (12/20/13) Open- Dr. Loya S/P IVC filter (07/19/14) S/P PICC central line placement (06/04/04) Status post incision and drainage (06/23/13) Perianal abcess Family History Father , at 61 Acute myocardial infarction Uncle Malignant neoplasm of prostate Social History household members: spouse housing: house lives independently: Yes marital status: education level: high school service: No occupational status: retired occupation: rancher occupational exposures/hazards: Yes pets and animals: Yes other: Children -4 physical activity: none smoking status: Former smoker quit date: 03/08/1962 pack-years: 10 alcohol intake frequency: holiday/special occasion only substance use type: does not use MEDS/ALLERGIES Home Medications and Allergies Home Medications Medication Instructions Recorded Confirmed Type ascorbic acid (vitamin C) 500 mg 500 mg PO QDAY cap 08/21/14 08/19/21 History capsule,extended release blood-glucose meter (OneTouch #1 each 04/07/17 08/19/21 Rx Ultra2 Meter) blood sugar diagnostic (OneTouch #300 each 04/13/17 08/19/21 Rx Ultra Test) lancets 30 gauge (OneTouch Delica #300 each 04/13/17 08/19/21 Rx Lancets) omeprazole 20 mg capsule,delayed 20 mg PO QDAY 12/28/18 08/19/21 History release triamcinolone acetonide 0.1 % 1 applic TOPICAL BID #30 g 06/14/19 08/19/21 Rx topical cream compr.stocking,knee,long,x-lrg #2 each 10/31/19 08/19/21 Rx honey 100 % topical paste 1 applic TOPICAL BID #44 ml 11/07/19 08/19/21 Rx (MediHoney (honey)) metolazone 2.5 mg tablet 2.5 mg PO QDAY #90 tab 07/17/20 08/19/21 Rx torsemide 20 mg tablet 20 mg PO BID PRN #90 tab 08/13/20 08/19/21 Rx losartan 50 mg tablet 50 mg PO QDAY #90 tab 09/30/20 08/19/21 Rx metformin 500 mg tablet,extended 500 mg PO QPM #90 tab 01/13/21 08/19/21 Rx release 24 hr potassium chloride 10 mEq 10 meq PO QDAY #1 tab 03/19/21 08/19/21 Rx tablet,extended release lidocaine 5 % topical patch 1 patch TOPICAL QDAY #15 ea 05/19/21 08/19/21 Rx (Lidoderm) clotrimazole-betamethasone 1 1 applic TOPICAL BID 14 Days #45 g 05/22/21 08/19/21 Rx %-0.05 % topical cream hydrocodone 10 mg-acetaminophen 1 tab PO Q6H PRN #112 tab 08/11/21 08/19/21 Rx 325 mg tablet oxycodone-acetaminophen 10 mg-325 1 tab PO Q12H PRN #56 tab 08/11/21 08/19/21 Rx mg tablet 4ww with seat #1 ea 08/19/21 08/19/21 Rx colestipol 1 gram tablet 2 g PO QDAY #60 tab 08/19/21 08/19/21 Rx loperamide 2 mg capsule 2 mg PO Q6H PRN #30 cap 08/19/21 08/19/21 Rx (Anti-Diarrheal (loperamide)) mometasone 50 mcg/actuation nasal 2 spray INTRANASAL QDAY #17 g 08/19/21 08/19/21 Rx spray Allergies Allergy/AdvReac Type Severity Reaction Status Date / Time cephalexin Allergy Severe syncope Verified 08/23/21 07:38 sulfamethoxazole Allergy Severe syncope Verified 08/23/21 07:38 [From ] trimethoprim [From ] Allergy Severe syncope Verified 08/23/21 07:38 melatonin AdvReac Severe Tachycardia Verified 08/23/21 07:38 NSAIDS (Non-Steroidal AdvReac Severe GI bleed Verified 08/23/21 07:38 Anti-Inflamma aspirin AdvReac Intermediate Unknown Verified 08/23/21 07:38 morphine AdvReac Intermediate Anxiety Verified 08/23/21 07:38 valacyclovir AdvReac Mild Vomiting/Di Verified 08/23/21 07:38 arrhea EXAM Constitutional Vitals: Pulse Resp BP Pulse Ox 75 18 108/69 95 08/23/21 13:34 08/23/21 11:10 08/23/21 13:34 08/23/21 13:34 Exam: General: Alert, Awake, No acute Distress Eyes/N/T: EOMI, PERRL, Head/Neck: neck supple, normocephalic atraumatic CV: RRR, No murmurs, normal s1/s2 Pulm: Right side rhonchi/rales, no wheezing Abd: soft, generalized tenderness, +BS x4 Ext: no clubbing/cyanosis, b/l LE chronic 2+ edema Neuro: Alert, no focal deficits, moves all extremities, CN 2-12 grossly intact, symmetrical strength b/l upper/lower, sensations intact b/l upper/lower Skin: warm/dry DATA Data Completed and Pending Labs: Labs from last 24 hours 08/23/21 08/23/21 08/23/21 08:32 08:19 08:19 WBC RBC Hgb Hct MCV MCH MCHC RDW Plt Count MPV Neut % (Auto) Lymph % (Auto) [place] % (Auto) Eos % (Auto) Baso % (Auto) Lymph # (Auto) [place] # (Auto) Eos # (Auto) Baso # (Auto) Absolute Neutrophils Platelet Estimate RBC Morphology PT INR APTT Sodium Potassium Chloride Carbon Dioxide Anion Gap BUN Creatinine POC Creatinine 1.4 H GFR Calculation Glucose Calcium Total Bilirubin AST ALT Alkaline Phosphatase C-Reactive Protein Total Protein Albumin Globulin Albumin/Globulin Ratio Lipase 16 Procalcitonin 08/23/21 08/23/21 08/23/21 08:19 08:19 08:19 WBC 9.2 RBC 4.02 L Hgb 12.5 L Hct 39.3 L MCV 97.8 MCH 31.1 MCHC 31.8 RDW 13.2 Plt Count 287 MPV 9.6 Neut % (Auto) 72.0 Lymph % (Auto) 10.6 L [place] % (Auto) 13.2 H Eos % (Auto) 3.7 Baso % (Auto) 0.5 Lymph # (Auto) 0.97 L [place] # (Auto) 1.21 H Eos # (Auto) 0.34 Baso # (Auto) 0.05 Absolute Neutrophils 6.59 Platelet Estimate RBC Morphology PT 15.5 H INR 1.2 H APTT 35.5 Sodium 137 Potassium 4.3 Chloride 101 Carbon Dioxide 26 Anion Gap 10.0 BUN 18 Creatinine 1.5 H POC Creatinine GFR Calculation 41 Glucose 125 H Calcium 8.6 Total Bilirubin 0.4 AST 11 ALT < 5 Alkaline Phosphatase 56 C-Reactive Protein Total Protein 6.2 Albumin 3.1 L Globulin 3.1 Albumin/Globulin Ratio 1.0 Lipase Procalcitonin 08/23/21 08/23/21 08/23/21 08:09 08:09 08:09 WBC RBC Hgb Hct MCV MCH MCHC RDW Plt Count MPV Neut % (Auto) Lymph % (Auto) [place] % (Auto) Eos % (Auto) Baso % (Auto) Lymph # (Auto) [place] # (Auto) Eos # (Auto) Baso # (Auto) Absolute Neutrophils Platelet Estimate Pending RBC Morphology Pending PT INR APTT Sodium Potassium Chloride Carbon Dioxide Anion Gap BUN Creatinine POC Creatinine GFR Calculation Glucose Calcium Total Bilirubin AST ALT Alkaline Phosphatase C-Reactive Protein Pending Total Protein Albumin Globulin Albumin/Globulin Ratio Lipase Procalcitonin Pending A/P Narrative A/P Narrative: A: *GIB, likely lower: *PNA b/l: recent covid infection end of July *Acute hypoxic respiratory failure: -on 2L NC *Generalized weakness/deconditioning: *h/o diastolic(II) CHF: *Peripheral edema: *DM: On metformin *Chronic pain: *HTN: *CKD III: *GERD: P: -IV abx, SC, strep -IS/acapella, prn nebs, RT -O2 supp, wean as able -Dr. Cuadra for endoscopy -monitor H&H -Elevate legs while in bed, compression wraps -Home medication reconciliation -PT/OT -CM for placement -ppx: SCD (no chemical given GIB) / home ppi DNR Time Spent With Patient Time: Total time spent is greater than 50% in coordination of care (as documented) at patient's floor/unit and/or counseling patient: Total time spent with greater than 50% in coordination of care (as documented) at patient's floor/unit and/or counseling patient:: 50 - 70 minutes
[2021-08-23 14:40] LABS: Band Neutrophils % 11 % (0-10); Eosinophils % (Manual) 3 % (0-7); Lymphocytes % 9 % (15-49); Monocytes % (Manual) 12 % (1-12); Platelet Estimate NORMAL (Normal); RBC Morphology NORMAL (Normal); Segmented Neutrophils % 65 % (38-78)
--- NOTE | 2021-08-23 15:11 | XRay Report ---
CLINICAL INFORMATION: Pneumonia COMPARISON: Two-view chest 05/04/2018 and portable chest 08/01/2021 TECHNIQUE: PA and Lateral views FINDINGS: Mild cardiomegaly is unchanged. Mediastinum and pulmonary vessels are normal. Moderate patchy infiltrates have progressed considerably in both mid and lower lungs since the comparison x-ray three weeks ago. Small bilateral pleural effusions appreciated. IMPRESSION: Moderate patchy infiltrates in both mid and lower lungs progressing considerably since chest x-ray three weeks ago. Consider aspiration or, less likely, infection. Interpreted and Authenticated by: Lm Brown 08/23/21
[2021-08-23] MEDS ORDERED: POTASSIUM CHLORIDE 40 MEQ in DEXTROSE 5% IN WATER 500 ML IV PRN (15:38)
[2021-08-23] MEDS ORDERED: ACETAMINOPHEN 325 MG TABLET PO PRN (15:38)
[2021-08-23] MEDS ORDERED: POLYETHYLENE GLYCOL 3350 17 GM PACKET PO PRN (15:38)
[2021-08-23] MEDS ORDERED: SENNOSIDES 1 TABLET PO PRN (15:38)
[2021-08-23] MEDS ORDERED: PIPERACILLIN SODIUM/TAZOBACTAM 3.375 GM in DEXTROSE 5% IN WATER 50 ML IV SCH (15:38)
[2021-08-23] MEDS ORDERED: POTASSIUM CHLORIDE 20 MEQ TABLET PO PRN ×2 (15:38)
[2021-08-23] MEDS ORDERED: IPRATROPIUM/ALBUTEROL 3 ML AMPUL.NEB NEB PRN (15:38)
[2021-08-23] MEDS ORDERED: ONDANSETRON 4 MG/2 ML VIAL IV PRN (15:38)
[2021-08-23] MEDS ORDERED: MAGNESIUM SULFATE 2 GM/50 ML BAG IV PRN (15:38)
[2021-08-23] MEDS ORDERED: AZITHROMYCIN 500 MG in DEXTROSE 5% IN WATER 250 ML IV SCH (16:00)
--- NOTE | 2021-08-23 16:08 | General Surgery Consult Note ---
HPI Data of Consult Patient: new to practice Consult date: 08/23/21 Primary Care Provider: Lm Berry DO Consult Narrative Patient Information: Note initiated : 08/23/21 at 4:03 pm Service Date, if different from initiated Date: [] Patient: Omar Leal 89 y/o M admitted on 08/23/21 for rectal bleeding. This is a pleasant 89-year-old gentleman who presented emergency room with dark stools and bright red blood per rectum. Patient reports he has had similar episodes in the past, approximately 20 years ago he had a GI bleed for which he had a partial colectomy. He reports that his last colonoscopy was probably greater than 15 years ago. He has had a history of a hiatal hernia which was repaired with what sounds like a hiatal hernia repair. He has not had any work- up since that and that was approximately 10 to 15 years ago. He reports that over the last several days he has had some dark stools. No shortness of breath, fevers chills or lightheadedness. Work-up in the emergency room is consistent with heme positive stools and I was asked to see the patient to evaluate for GI bleed. Chief Complaint: [] Chief complaint: Bright red blood per rectum cc:: CC: Trevon Tomas Review of Systems Review of systems: All systems are reviewed, negative other than above PFSH PFSH All Active Problems Pneumonia (Acute) Acute lower GI bleeding (Acute) Risk for falls (Acute) Skin tear of right forearm without complication (Acute) Medicare annual wellness visit, subsequent (Acute) Trigeminal neuralgia, postherpetic (Acute) Cellulitis of right leg (Acute) Diuretics causing adverse effect in therapeutic use (Acute) Otalgia, right ear (Acute) Herpes simplex ophthalmicus (Acute) Cellulitis and abscess of left leg (Acute) Knee effusion (Acute) Fall (Acute) Knee pain (Acute) Leg ulcer, left (Acute) Medicare annual wellness visit, initial (Acute) Venous insufficiency of both lower extremities (Acute) At risk for infection associated with ventilator (Acute) Head injury (Acute) Sternum pain (Acute) CKD (chronic kidney disease) stage 3, GFR 30-59 ml/min (Chronic) Shortness of breath (Acute) Thoracic back pain (Acute) Chronic pain of right elbow (Chronic) Chronic pain (Chronic) Pain in finger of right hand (Acute) Trochanteric bursitis of left hip (Chronic) Sinusitis, acute (Acute) Leg pain, right (Acute) Chronic use of opiate drug for therapeutic purpose (Chronic) Right leg swelling (Acute) Obesity (BMI 30.0-34.9) (Chronic) Laceration of right lower leg (Acute) Edema, peripheral (Acute) Elevated serum creatinine (Acute) Stasis dermatitis of both legs (Acute) Onychomycosis (Chronic) Venous stasis (Chronic) Callus of foot (Acute) Hoarseness (Chronic) Bronchitis (Acute) Fall (Acute) Multiple contusions (Acute) Skin tear (Acute) Upper respiratory infection (Acute) ILD (interstitial lung disease) (Chronic) Pulmonary fibrosis (Chronic) CHF (congestive heart failure) (Chronic) Left foot pain (Chronic) Rib fractures (Chronic) Cough (Acute) Aseptic loosening of prosthetic joint (Chronic) Laceration of right upper extremity (Acute) Muscle spasm (Chronic) Tinea cruris (Chronic) Skin lesion of back (Chronic) Bradycardia (Chronic) Low Back Pain (Chronic) Numbness and tingling in left arm (Chronic) Diarrhea (Chronic) Pitting edema (Chronic) Occipital neuritis (Chronic) Pain in left testicle (Chronic) Neck pain (Chronic) Metabolic Syndrome X (Chronic) Actinic keratosis (Chronic) Right shoulder injury (Chronic) Sprain of shoulder, right (Chronic) Abrasion of right forearm (Acute) Greater trochanteric bursitis of right hip (Chronic) Back Pain (Chronic) Deep vein thrombosis (DVT) (Chronic) Itching (Chronic) Skin Lesion (Chronic) Right shoulder pain (Chronic) Chronic venous insufficiency (Chronic) Leg edema (Chronic) Tinnitus (Chronic) Spondylolysis, 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) Rupture long head biceps tendon (Chronic) Rotator cuff syndrome of left shoulder (Chronic) Raynauds syndrome (Chronic) Prostate hyperplasia with urinary obstruction (Chronic) Peripheral vascular disease (Chronic) Peripheral neuropathy (Chronic) Osteoarthritis of spine (Chronic 08/01/13) Metabolic syndrome X (Chronic) Displacement of lumbar intervertebral disc without myelopathy (Chronic 08/01/13) Lateral epicondylitis (Chronic 05/03/12) Insomnia (Chronic 05/03/12) Hypertension, essential (Chronic) Hyperlipidemia (Chronic) Ventral hernia, recurrent (Chronic) Incisional hernia (Chronic) Glaucoma (Chronic 06/13/13) Gastroesophageal reflux (Chronic) Foraminal stenosis of lumbar region (Chronic) Environmental allergies (Chronic 12/02/12) Edema (Chronic 06/28/12) Dysphonia (Chronic) Diverticulosis of colon (Chronic) Diabetes mellitus, type II (Chronic) Degenerative joint disease (Chronic) Deep vein thrombosis (DVT) (Chronic 07/18/14) Kidney cysts (Chronic) Colon polyp (Chronic 08/09/14) Colon adenoma (Chronic) Bursitis of hip (Chronic) Garcia's esophagus (Chronic) Atrophic kidney (Chronic) Atrial fibrillation (Chronic) Anemia (Chronic) 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 Actinic keratitis (07/04/14) 07-04-2014-Right 2-3 dorsal web space, 11-08-2012-nose, 06-11-2013- right side of nose Actinic keratosis One lesion right ear treated with liquid nitrogen Acute narcotic withdrawal Anemia D/T diverticular bleed Aseptic loosening of prosthetic joint Suspected loosening of right radial head prosthesis At risk for infection associated with ventilator Atrial fibrillation Frequent PVCs. Atrophic kidney Left Garcia's esophagus Bradycardia [place] of the RLE Bursitis of hip Carpal tunnel syndrome, bilateral Cellulitis 09/11/14 left leg CHF (congestive heart failure) Diastolic Continue current diuretics, which is metolazone 2.5 mg daily followed by torsemide 20 mg twice daily Consider getting him back in with cardiology, as he has not seen them for nearly 2 years Chronic pain of right elbow Patient states worsening. Multiple tender points. Seems that he has fibromyalgia, and increased nociception likely due to long- term opiate use for pain. X-rays from a year ago showed possible loosening of the prosthesis of the right elbow. I do not have the x-rays from 2 months ago, but will request the records. MR right elbow without contrast ordered today. Continue massage therapy. Recommend physical therapy, patient refuses. Continue pain management. Chronic use of opiate drug for therapeutic purpose Chronic venous insufficiency Bilateral legs CKD (chronic kidney disease) stage 3, GFR 30-59 ml/min With acute mild elevation of creatinine in ER 2 weeks ago We will recheck renal panel today and consider adjusting diuretics Colon adenoma 08/09/14 Colon polyp (08/09/14) TA-Dr. Lazcano Cough Cyst (06/13/13) 1-cm cyst on perineum Deep vein thrombosis (DVT) (07/18/14) Bilateral Deep vein thrombosis (DVT) H/O Degenerative joint disease Dehydration Diabetes mellitus, type II Well-controlled on metformin ER 500 mg every afternoon Diabetic diet recommended Follow-up with ophthalmology frequently Diabetic foot exam today. He does have numbness, callus, and foot deformity. His often checks his feet for wounds. He sees podiatry frequently for callus and toenail care. Check A1c and HAWK today Diarrhea Possibly post-cholecystectomy associated Displacement of lumbar intervertebral disc without myelopathy (08/01/13) Diverticulosis of colon history of hemorrhage Dysphonia Edema (06/28/12) Environmental allergies (12/02/12) possible long-term history of morphine allergy Epidermoid cyst Epididymitis, left mild Escherichia coli (E. coli) infection (12/14/13) Dr. House Fall Foraminal stenosis of lumbar region L3-4 Gastroesophageal reflux Gastrointestinal tract hemorrhage (06/13/13) Diverticular bleed. Severe. Glaucoma (06/13/13) Herpes simplex ophthalmicus Hyperlipidemia Hypertension, essential Well-controlled on losartan 50 mg daily ILD (interstitial lung disease) Mild. Chest x-ray 02/07/2018. Ileus 1. opioid induced ileus-managed with laxatives and tapering opioids. Patient doing well. discharge home in stable state. 09/21/14. 2. Intractable nausea vomiting secondary to opioids. Resolved 3DM type II stable on home meds 4. DJD on home meds 5. History of A. fib on anticoagulation 6. History of CAD remains stable Ileus, postoperative (12/14/13) Now resolved- Dr. House Incisional hernia Insomnia (05/03/12) Itching Kidney cysts Multiple on right kidney Knee effusion Improved per patient Knee pain Stop Dilaudid, resume chronic pain medications Patient should have 3 Dilaudid left in case of breakthrough pain in the middle of the night Laceration of arm Approximately 3 inch skin slip left upper arm. Clean. Not infected at present Lateral epicondylitis (05/03/12) Leg edema Compression stockings recommended daily. Elevate legs as much as possible, above the level of the heart. Avoid sodium in diet Increase torsemide to 60 mg daily metolazone to 5 mg daily. Increase potassium chloride to 20 mEq daily. We will follow-up via phone in 3 days. Low Back Pain Significant degenerative disc disease. Medicare annual wellness visit, initial Medicare annual wellness visit, subsequent Metabolic syndrome X Metabolic Syndrome X Nausea and vomiting Neck pain Osteoarthritic and myofascial Obesity (BMI 30.0-34.9) Occipital neuritis Greater occipital neuritis. Left side greater than right. Osteoarthritis of spine (08/01/13) Severe cervical and LS spine Otalgia, right ear Pain in finger of right hand X-ray right hand Pancreatitis (12/14/13) Biliary Pancreatitis -Dr. Jiang Perineal abscess (06/29/13) Peripheral neuropathy Diabetic Peripheral vascular disease Pitting edema Bilateral lower extremities Pleural effusion (06/28/12) Prostate hyperplasia with urinary obstruction Pulmonary fibrosis Mild. Raynauds syndrome Remote - left 3rd finger Rib fractures Right sixth and seventh ribs anterolaterally Right shoulder injury Right shoulder pain impingement and osteoarthritis. Rotator cuff syndrome of left shoulder chronic Rupture long head biceps tendon Sepsis H/O Skin Lesion Cystic structure right mid back laterally. 1.1 x 1.2 cm. Excised. Skin tear of right forearm without complication Spondylolysis, lumbosacral (08/08/13) Dr. 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 Squamous cell carcinoma in situ. Tinnitus Venous insufficiency of both lower extremities Ventral hernia, recurrent Vomiting Surgical History H/O colectomy (06/12/04) Left with primary anastomosis for diverticular bleed H/O colonoscopy (08/09/14) 08-09-2014-TA 03-21-2011-Hemorrhoids. Hyperplastic appearing polyps. Diverticula. H/O elbow surgery Dr. Ballesteros H/O esophagogastroduodenoscopy (12/23/10) Garcia's esophagus. Indefinite for dysplasia. Focal eosinophils present within squamous mucosa. H/O prior ablation treatment 02/05/17 Right greater saphenous vein ablation H/O repair of left rotator cuff (03/11/04) H/O repair of right rotator cuff 2011 Dr. Avery H/O thumb surgery (08/08/13) Dr. Ballesteros H/O toe surgery Right hammer toe surgery History of carpal tunnel surgery of right wrist History of cataract surgery Bilateral Hx of cholecystectomy (12/20/13) Open- Dr. Loya S/P IVC filter (07/19/14) S/P PICC central line placement (06/04/04) Status post incision and drainage (06/23/13) Perianal abcess Family History Father , at 61 Acute myocardial infarction Uncle Malignant neoplasm of prostate Social History household members: spouse housing: house lives independently: Yes marital status: education level: high school service: No occupational status: retired occupation: rancher occupational exposures/hazards: Yes pets and animals: Yes other: Children -4 physical activity: none smoking status: Former smoker quit date: 03/08/1962 pack-years: 10 alcohol intake frequency: holiday/special occasion only substance use type: does not use MEDS/ALLERGIES Home Medications and Allergies Home Medications Medication Instructions Recorded Confirmed Type ascorbic acid (vitamin C) 500 mg 500 mg PO QDAY cap 08/21/14 08/19/21 History capsule,extended release blood-glucose meter (OneTouch #1 each 04/07/17 08/19/21 Rx Ultra2 Meter) blood sugar diagnostic (OneTouch #300 each 04/13/17 08/19/21 Rx Ultra Test) lancets 30 gauge (OneTouch Delica #300 each 04/13/17 08/19/21 Rx Lancets) omeprazole 20 mg capsule,delayed 20 mg PO QDAY 12/28/18 08/19/21 History release compr.stocking,knee,long,x-lrg #2 each 10/31/19 08/19/21 Rx metolazone 2.5 mg tablet 2.5 mg PO QDAY #90 tab 07/17/20 08/19/21 Rx torsemide 20 mg tablet 20 mg PO BID PRN #90 tab 08/13/20 08/19/21 Rx losartan 50 mg tablet 50 mg PO QDAY #90 tab 09/30/20 08/19/21 Rx metformin 500 mg tablet,extended 500 mg PO QPM #90 tab 01/13/21 08/19/21 Rx release 24 hr potassium chloride 10 mEq 10 meq PO QDAY #1 tab 03/19/21 08/19/21 Rx tablet,extended release clotrimazole-betamethasone 1 1 applic TOPICAL BID 14 Days #45 g 05/22/21 08/19/21 Rx %-0.05 % topical cream oxycodone-acetaminophen 10 mg-325 1 tab PO Q12H PRN #56 tab 08/11/21 08/19/21 Rx mg tablet 4ww with seat #1 ea 08/19/21 08/19/21 Rx loperamide 2 mg capsule 2 mg PO Q6H PRN #30 cap 08/19/21 08/19/21 Rx (Anti-Diarrheal (loperamide)) mometasone 50 mcg/actuation nasal 2 spray INTRANASAL QDAY #17 g 08/19/21 08/19/21 Rx spray hydrocodone 10 mg-acetaminophen 1 tab PO Q4 08/23/21 08/23/21 History 325 mg tablet Allergies Allergy/AdvReac Type Severity Reaction Status Date / Time cephalexin Allergy Severe syncope Verified 08/23/21 07:38 sulfamethoxazole Allergy Severe syncope Verified 08/23/21 07:38 [From ] trimethoprim [From ] Allergy Severe syncope Verified 08/23/21 07:38 melatonin AdvReac Severe Tachycardia Verified 08/23/21 07:38 NSAIDS (Non-Steroidal AdvReac Severe GI bleed Verified 08/23/21 07:38 Anti-Inflamma aspirin AdvReac Intermediate Unknown Verified 08/23/21 07:38 morphine AdvReac Intermediate Anxiety Verified 08/23/21 07:38 valacyclovir AdvReac Mild Vomiting/Di Verified 08/23/21 07:38 arrhea Physical Examination Vital Signs Vital signs: Temp Pulse Resp BP Pulse Ox 97.4 F 76 22 120/74 94 08/23/21 15:22 08/23/21 15:22 08/23/21 15:22 08/23/21 15:22 08/23/21 15:22 General physical appearance General physical exam: well developed, well nourished and no distress Eyes Eye exam: PERRL and normal ocular movement ENT ENT exam: normal pinna, normal nares, normal mucosa, no hearing loss and no congestion Head Head exam IM: Present atraumatic and normocephalic Neck Neck exam: no masses, no bruits, trachea midline, no lymphadenopathy and no venous distension Cardiovascular Cardiovascular exam IM: Present normal rate and rhythm Respiratory Respiratory exam: normal expansion, normal respiratory effort, clear to percussion and clear to auscultation Abdomen Abdomen: Present soft, non tender and bowel sounds Hernia: Present none Genitourinary Genitourinary (Male): Present normal penis with no external lesions Rectum Rectum: Present normal sphincter tone, no hemorrhoids, no tenderness, no masses and no bleeding Integumentary Integumentary: Present no rash, no growths and no abnormal pigmentation Neurologic Neurologic: Present normal coordination and normal sensation Musculoskeletal Musculoskeletal: Present normal gait and normal posture Psychiatric Psychiatric: Present oriented to time, oriented to person, oriented to place, speech is normal and memory intact Results Labs Result diagrams: 08/23/21 08:19 08/23/21 08:19 Labs: Abnormal lab results 08/23/21 08/23/21 08/23/21 Range/Units 08:09 08:09 08:09 RBC (4.63-6.08) M/mcL Hgb (13.7-17.5) g/dL Hct (40.1-51.0) % Lymph % (Auto) (15.5-49.0) % [place] % (Auto) (1.0-12.0) % Lymph # (Auto) (1.50-4.80) K/mcL [place] # (Auto) (0.10-0.90) K/mcL Band Neutrophils % 11 H (0-10) % Lymphocytes % 9 L (15-49) % PT (11.9-14.5) sec INR (0.9-1.1) Creatinine (0.7-1.2) mg/dL POC Creatinine (0.6-1.2) Glucose (70-105) mg/dL C-Reactive Protein 2.80 H (0.03-0.80) mg/dL Albumin (3.2-5.2) gm/dL Procalcitonin 0.11 H (<0.10) ng/mL 08/23/21 08/23/21 08/23/21 Range/Units 08:19 08:19 08:19 RBC 4.02 L (4.63-6.08) M/mcL Hgb 12.5 L (13.7-17.5) g/dL Hct 39.3 L (40.1-51.0) % Lymph % (Auto) 10.6 L (15.5-49.0) % [place] % (Auto) 13.2 H (1.0-12.0) % Lymph # (Auto) 0.97 L (1.50-4.80) K/mcL [place] # (Auto) 1.21 H (0.10-0.90) K/mcL Band Neutrophils % (0-10) % Lymphocytes % (15-49) % PT 15.5 H (11.9-14.5) sec INR 1.2 H (0.9-1.1) Creatinine 1.5 H (0.7-1.2) mg/dL POC Creatinine (0.6-1.2) Glucose 125 H (70-105) mg/dL C-Reactive Protein (0.03-0.80) mg/dL Albumin 3.1 L (3.2-5.2) gm/dL Procalcitonin (<0.10) ng/mL 08/23/21 Range/Units 08:32 RBC (4.63-6.08) M/mcL Hgb (13.7-17.5) g/dL Hct (40.1-51.0) % Lymph % (Auto) (15.5-49.0) % [place] % (Auto) (1.0-12.0) % Lymph # (Auto) (1.50-4.80) K/mcL [place] # (Auto) (0.10-0.90) K/mcL Band Neutrophils % (0-10) % Lymphocytes % (15-49) % PT (11.9-14.5) sec INR (0.9-1.1) Creatinine (0.7-1.2) mg/dL POC Creatinine 1.4 H (0.6-1.2) Glucose (70-105) mg/dL C-Reactive Protein (0.03-0.80) mg/dL Albumin (3.2-5.2) gm/dL Procalcitonin (<0.10) ng/mL Diabetes panel 08/23/21 Range/Units 08:19 Sodium 137 (133-145) mmol/L Potassium 4.3 (3.3-5.1) mmol/L Chloride 101 (96-108) mmol/L Carbon Dioxide 26 (22-30) mmol/L BUN 18 (8-23) mg/dL Creatinine 1.5 H (0.7-1.2) mg/dL Glucose 125 H (70-105) mg/dL Calcium 8.6 (8.6-10.4) mg/dL AST 11 (<40) U/L ALT < 5 (<40) U/L Alkaline Phosphatase 56 (39-117) U/L Total Protein 6.2 (5.9-8.4) gm/dL Albumin 3.1 L (3.2-5.2) gm/dL Calcium panel 08/23/21 Range/Units 08:19 Calcium 8.6 (8.6-10.4) mg/dL Albumin 3.1 L (3.2-5.2) gm/dL Pituitary panel 08/23/21 Range/Units 08:19 Sodium 137 (133-145) mmol/L Potassium 4.3 (3.3-5.1) mmol/L Chloride 101 (96-108) mmol/L Carbon Dioxide 26 (22-30) mmol/L BUN 18 (8-23) mg/dL Creatinine 1.5 H (0.7-1.2) mg/dL Glucose 125 H (70-105) mg/dL Calcium 8.6 (8.6-10.4) mg/dL Adrenal panel 08/23/21 Range/Units 08:19 Sodium 137 (133-145) mmol/L Potassium 4.3 (3.3-5.1) mmol/L Chloride 101 (96-108) mmol/L Carbon Dioxide 26 (22-30) mmol/L BUN 18 (8-23) mg/dL Creatinine 1.5 H (0.7-1.2) mg/dL Glucose 125 H (70-105) mg/dL Calcium 8.6 (8.6-10.4) mg/dL Total Bilirubin 0.4 (0.1-1.0) mg/dL AST 11 (<40) U/L ALT < 5 (<40) U/L Alkaline Phosphatase 56 (39-117) U/L Total Protein 6.2 (5.9-8.4) gm/dL Albumin 3.1 L (3.2-5.2) gm/dL All other labs normal. A/P Assessment and plan (1) Acute lower GI bleeding: Plan: This is a pleasant 89-year-old gentleman who presents with signs symptoms consistent with a GI bleed. She has a prior history of a lower GI bleed requiring surgery, he does report some dark stools as well as bright red blood. Risk, benefits, alternatives to work-up discussed with the patient at length. He verbalized understanding and desires to continue. Plan: Will prep tonight, will add on for a EGD and colonoscopy with anesthesia in endoscopy tomorrow. Further recommendations based on endoscopy results. Thank you very much for this consultation. Status: Acute Time Spent With Patient Time: Total time spent is greater than 50% in coordination of care (as documented) at patient's floor/unit and/or counseling patient:
[2021-08-23] MEDS ORDERED: PEG 3350/NA SULF,BICARB,CL/KCL 4,000 ML ORAL.SOL PO SCH (16:15)
--- NOTE | 2021-08-23 16:23 | Cat Scan Report ---
CLINICAL INFORMATION: GI bleed COMPARISON: Chest CT 05/30/2019.. Pelvic CT 08/25/2011 TECHNIQUE: Following enteric contrast, 80 cc of Isovue-[id number] were injected intravenously, and 60 seconds later, 0.625 mm helical slices were obtained from the mid heart through the subtrochanteric regions. Following reconstruction, 2.5 mm sagittal, coronal and axial reformatted images were processed and reviewed at bone, lung and soft tissue windows. Five minutes later, 0.625 mm helical slices were obtained from the mid heart through the kidneys and viewed at soft tissue windows.The exam was performed using radiation dose optimization techniques including, but not limited to, automated exposure control, adjustment of the mA and/or kV according to patient size and use of iterative reconstruction technique. FINDINGS: The lung bases show moderate consolidated infiltrates scattered within the visualized lower lobes, right middle lobe and lingula. Tiny bilateral pleural effusions noted. The visualized heart is moderately enlarged and there is calcification in the mitral valve. Abdominal images show mild fatty change within the liver, but no focal hepatic lesion. The gallbladder is surgically absent. Common bile duct is mildly dilated-12 mm due to postcholecystectomy state. A cm periampullary diverticulum invaginates the medial pancreatic head contributing to extrinsic impingement of the intrapancreatic common bile duct. The pancreas is markedly atrophic and there are multiple small cysts within the pancreatic parenchyma ranging up to 2.9 cm. These show slight increase in size and number from the comparison examination 05/30/2019. The spleen, both adrenal glands and aorta, including aortic branches, are normal in size configuration and attenuation without focal lesion. Moderate atrophy of the left kidney noted: 5.5 cm in length. There is compensatory hypertrophy of the right kidney which spans 13 cm. There is scattered cysts within both kidneys, predominantly on the right, which range up to 4.5 cm. There are two isointense lesions projecting from the lateral cortex mid right kidney: 14 and 5 mm respectively. These are likely hyperdense cysts but may require ultrasound to be certain they're not solid. Nonobstructing stones seen within the calyces of the right kidney: 4.8 mm superior calyx 8 mm mid calyx, 2 mm mid calyx. There are no left-sided stones. Mild left hydronephrosis appreciated ostensibly related mild congenital UPJ narrowing. The prostate is mildly enlarged spanning 4.7 cm in diameter. Asymmetric enlargement of the right peripheral zone was also noted on pelvic CT 08/25/2011. This is likely benign hypertrophy. Urinary bladder is unremarkable. Small ureterocele seen in the distal left ureteral insertion. Stomach, small bowel, appendix and large bowel are grossly normal. No evidence for GI bleed. Bone windows show no osseous abnormality IMPRESSION: 1. No CT evidence for GI blood loss source. 2. Moderate alveolar infiltrates scattered within the both visualized lower, right middle lobe and lingula. 3. Marked pancreatic atrophy with multiple pancreatic cysts which show slight increase in size and number from a comparison chest CT from 05/30/2019. This is likely clinically insignificant this patient's age. 4. Small nonobstructing stones the calyces of the right kidney ranging up to 8 mm. Scattered simple cysts in both kidneys. Two isointense lesions 14 and 5 mm lateral mid right kidney. These are likely hyperdense cysts, but exclusion of solid lesion would require ultrasound. 5. Moderate atrophy left kidney with compensatory hypertrophy of the right kidney. Mild left hydronephrosis noted. 6. Mild prostate enlargement with asymmetric enlargement of the right peripheral zone. This is unchanged 2011 Interpreted and Authenticated by: Lm Brown 08/23/21
[2021-08-23] MEDS ORDERED: TORSEMIDE 20 MG TABLET PO PRN (16:32)
[2021-08-23] MEDS ORDERED: DEXTROSE 31 GM ORAL.SUSP PO PRN (16:34)
[2021-08-23] MEDS ORDERED: DEXTROSE 50% 50 ML VIAL IV PRN (16:34)
[2021-08-23] MEDS: oxyCODONE/APAP 10/325MG TABLET PO PRN (17:20)
[2021-08-23] MEDS: 0.9 % SODIUM CHLORIDE 10 ML SYRINGE IV SCH ×2 (17:20→20:27)
[2021-08-23] MEDS: PIPERACILLIN SODIUM/TAZOBACTAM 2.25 GM in DEXTROSE 5% IN WATER 50 ML IV SCH ×3 (17:21→23:51)
[2021-08-23] MEDS: INSULIN LISPRO 1 UNIT/0.01 ML UNIT SQ SCH ×2 (17:21→20:27)
[2021-08-23] MEDS ORDERED: HYDROcodone/APAP 10/325MG TABLET PO PRN (20:00)
[2021-08-24] LABS: Hematocrit 38.4 % (40.1-51.0); Hemoglobin 11.6 g/dL (13.7-17.5)
[2021-08-24] MEDS ORDERED: HYDROcodone/APAP 10/325MG TABLET PO ONE (02:53)
[2021-08-24] MEDS: HYDROcodone/APAP 10/325MG TABLET PO PRN ×2 (02:53→20:27)
[2021-08-24 04:28] LABS: Hematocrit 35.9 % (40.1-51.0)
[2021-08-24] MEDS: 0.9 % SODIUM CHLORIDE 10 ML SYRINGE IV SCH ×3 (05:00→20:27)
[2021-08-24] MEDS: PIPERACILLIN SODIUM/TAZOBACTAM 2.25 GM in DEXTROSE 5% IN WATER 50 ML IV SCH ×3 (05:00→17:39)
[2021-08-24 06:27] LABS: Hematocrit 32.4 % (40.1-51.0); Hemoglobin 10.3 g/dL (13.7-17.5); Mean Cell Volume 97.9 fL (80.0-100.0); Mean Corpuscular HGB Conc 31.8 g/dL (31.0-36.0); Platelet Count 241 K/mcL (140-440); RBC 3.31 M/mcL (4.63-6.08); Red Cell Distribution Width 13.2 % (11.5-14.5); WBC 8.3 K/mcL (4.5-11.0)
[2021-08-24 07:00] LABS: ALT/SGPT < 5 U/L (<40); AST/SGOT 9 U/L (<40); Albumin 2.6 gm/dL (3.2-5.2); Albumin/Globulin Ratio 0.9 (1.0-2.3); Alkaline Phosphatase 47 U/L (39-117); Bilirubin,Direct < 0.2 mg/dL (0-0.3); Bilirubin,Total 0.5 mg/dL (0.1-1.0); Blood Urea Nitrogen 15 mg/dL (8-23); Carbon Dioxide 27 mmol/L (22-30); Chloride 101 mmol/L (96-108); Globulin 2.9 gm/dL (2.2-3.7); Glomerular Filtration Rate 59; Glucose 121 mg/dL (70-105); Lactate Dehydrogenase 212 U/L (135-225); Phosphorous 2.3 mg/dL (2.5-4.5); Triglycerides 78 mg/dL (<150)
--- NOTE | 2021-08-24 07:24 | Internal Med Progress Note ---
SUBJECTIVE Subjective Patient information: Note initiated : 08/24/21 at 7:20 am Service Date, if different from initiated Date: [] Patient: Omar Leal 89 y/o M admitted on 08/23/21 for rectal bleeding. Chief Complaint: [] Interval history: History of present illness: Mr. Leal is a 89 year old M Presents today with rectal bleeding. Per the he seems to be better historian and her . She states that yesterday he developed bleeding while he was having bowel movement yesterday and she said it was mixed in with the stool. She said it is neither bright red or melanotic. He complains of some generalized achy abdominal pain. He had another bloody bowel movement this morning and then another 1 not too long after that. CT scan of the abdomen was done which I believe did not show anything significant although waiting for the official report. He is also has recently had COVID and has been getting over that however he has had a worsening cough for the past few days. He denies shortness of breath. Chest x-ray in the ED showed bilateral pneumonia and he was hypoxic in the 80s on room air. Cough is productive of thick green phlegm. He is generally weak and seems to have been slowly declining over the past year. He uses a cane or walker to ambulate but has been using the walker more lately. Dr. Cuadra was contacted for the GI bleed regarding endoscopy. Patient started on antibiotics. 08/24 Large amount of bloody stool last night. hemoglobin down to 10.3 from 12.5 yesterday morning. No shortness of breath. Going for endoscopy this morning. Weak and tired but slept okay. Review of Systems: denies headache/fever/chills/nausea/vomiting/chest or abdominal pain/cough/dyspnea. Otherwise see above. Constitutional Vitals: Vital Signs Temp Pulse Resp BP Pulse Ox 97.7 F 75 16 128/78 91 08/24/21 03:24 08/24/21 03:24 08/24/21 03:24 08/24/21 03:24 08/24/21 03:24 Period Temp Pulse Resp BP Sys/Avilez Pulse Ox Last 24 Hr 97.4 F-98.4 F 68-80 16-22 105-147/65-93 90-98 Intake and Output 08/23/21 08/24/21 08/24/21 21:59 05:59 13:59 Intake Total 750 4390 Output Total 1550 3127 Balance -800 1263 Weight 84.567 kg Intake & Output: Intake & Output 08/23/21 08/24/21 08/24/21 21:59 05:59 13:59 Intake Total 750 4390 Output Total 1550 3127 Balance -800 1263 Weight 84.567 kg Intake: Nourishment/Supplement quantity 4000 (ml) IV 300 150 Zithromax 500 mg In Dextrose 5% 250 in Water 250 ml @ 250 mls/hr IV Q24H [facility] Rx#:[id number] Zosyn 2.25 gm In Dextrose 5% in 50 150 Water 50 ml @ 100 mls/hr IV Q6H [facility] Rx#:[id number] Oral 240 GI Tube Flush 450 Output: Void Amount 75 # of times incontinent of urine 2 Urine/Stool Mix 650 Stool 900 3050 Other: Nourishment/Supplement name Iraytescarlett Urine Appearance Clear Urine Color Straw Urine Odor Strong Stool Size Large Stool Color Dark Red Blood Dark Red Blood Stool Consistency Liquid # Bowel Movements 1 # of times incontinent of 2 Bowels Exam: General: Alert, Awake, No acute Distress Eyes/N/T: EOMI, , Head/Neck: neck supple, CV: RRR, No murmurs, Pulm: Right side rhonchi/rales, no wheezing Abd: soft, generalized tenderness, +BS x4 Ext: no clubbing/cyanosis, b/l LE chronic 2+ edema Neuro: Alert, no focal deficits, moves all extremities, Skin: warm/dry, pale OBJ DATA Labs CBC & Chem 7: 08/24/21 05:37 08/24/21 05:37 Labs: Abnormal Lab Results 08/24/21 08/24/21 08/24/21 05:37 05:37 05:37 RBC 3.31 L Hgb 10.3 L Hct 32.4 L Lymph % (Auto) Forrest % (Auto) Lymph # (Auto) Forrest # (Auto) Band Neutrophils % Lymphocytes % PT INR Creatinine POC Creatinine Glucose 121 H Calcium 8.0 L Phosphorus 2.3 L C-Reactive Protein 4.30 H Total Protein 5.5 L Albumin 2.6 L Albumin/Globulin Ratio 0.9 L Procalcitonin 08/24/21 08/23/2108/23/22 03:18 22:46 08:32 RBC Hgb 11.0 L 11.6 L Hct 35.9 L 38.4 L Lymph % (Auto) Forrest % (Auto) Lymph # (Auto) Forrest # (Auto) Band Neutrophils % Lymphocytes % PT INR Creatinine POC Creatinine 1.4 H Glucose Calcium Phosphorus C-Reactive Protein Total Protein Albumin Albumin/Globulin Ratio Procalcitonin 08/23/21 08/23/21 08/23/21 08:19 08:19 08:19 RBC 4.02 L Hgb 12.5 L Hct 39.3 L Lymph % (Auto) 10.6 L Forrest % (Auto) 13.2 H Lymph # (Auto) 0.97 L Forrest # (Auto) 1.21 H Band Neutrophils % Lymphocytes % PT 15.5 H INR 1.2 H Creatinine 1.5 H POC Creatinine Glucose 125 H Calcium Phosphorus C-Reactive Protein Total Protein Albumin 3.1 L Albumin/Globulin Ratio Procalcitonin 08/23/21 08/23/21 08/23/21 08:09 08:09 08:09 RBC Hgb Hct Lymph % (Auto) Forrest % (Auto) Lymph # (Auto) Forrest # (Auto) Band Neutrophils % 11 H Lymphocytes % 9 L PT INR Creatinine POC Creatinine Glucose Calcium Phosphorus C-Reactive Protein 2.80 H Total Protein Albumin Albumin/Globulin Ratio Procalcitonin 0.11 H Meds: Medications Acetaminophen (Acetaminophen 325 Mg Tablet) 650 mg PO Q6HP PRN; Protocol PRN Reason: Per Pain Protocol/Fever > 101 Hydrocodone Bitart/Acetaminophen (Hydrocodone/Apap 10/325mg Tablet) 1 tab PO Q4HP PRN; Protocol PRN Reason: Per Pain Protocol Last Admin: 08/24/21 02:53 Dose: 1 tab Documented by: Albuterol/Ipratropium (Ipratropium/Albuterol 3 Ml Ampul.Neb) 3 ml NEB Q4HP PRN PRN Reason: Shortness Of Breath Dextrose (Dextrose 50% 50 Ml Vial) 0 ml IV UD PRN PRN Reason: Per Sliding Scale Diagnostic Test (Pha) (Accu-Chek 1 Each Strip) 1 each FS ACHS [facility] Last Admin: 08/23/21 20:26 Dose: 1 each Documented by: Glucose (Dextrose 31 Gm Oral.Susp) 15 gm PO PRN PRN PRN Reason: Hypoglycemia Potassium Chloride 40 meq/ (Dextrose) 520 mls @ 130 mls/hr IV UD PRN PRN Reason: Potassium < 3 Magnesium Sulfate (Magnesium Sulfate) 2 gm in 50 mls @ 50 mls/hr IV UD PRN PRN Reason: Magnesium </= 1.6 Piperacillin Sod/Tazobactam (Sod 2.25 gm/ Dextrose) 50 mls @ 100 mls/hr IV Q6H [facility] Last Infusion: 08/24/21 05:53 Dose: Infused Documented by: Azithromycin 500 mg/ Dextrose 250 mls @ 250 mls/hr IV Q24H [facility]; Protocol Stop: 08/25/21 09:59 Insulin Human Lispro (Insulin Lispro 1 Unit/0.01 Ml Unit) 0 unit SQ ACHS [facility]; Protocol Last Admin: 08/23/21 20:27 Dose: Not Given Documented by: Losartan Potassium (Losartan 50 Mg Tablet) 50 mg PO QDAY [facility] Metolazone (Metolazone 2.5 Mg Tablet) 2.5 mg PO QDAY [facility] Ondansetron HCl (Ondansetron 4 Mg/2 Ml Vial) 4 mg IV Q4HP PRN PRN Reason: Nausea And Vomiting Oxycodone/Acetaminophen (Oxycodone/Apap 10/325mg Tablet) 1 tab PO Q12H PRN; Protocol PRN Reason: pain Last Admin: 08/23/21 17:20 Dose: 1 tab Documented by: Pantoprazole Sodium (Pantoprazole 40 Mg Tablet) 40 mg PO QAMAC [facility] Polyethylene Glycol (Polyethylene Glycol 3350 17 Gm Packet) 17 gm PO DAILYP PRN PRN Reason: Constipation Potassium Chloride (Potassium Chloride 20 Meq Tablet) 40 meq PO UD PRN PRN Reason: Potssium is 3-3.5 Potassium Chloride (Potassium Chloride 20 Meq Tablet) 40 meq PO UD PRN PRN Reason: Potassium < 3 Potassium Chloride (Potassium Chloride 10 Meq Tablet) 10 meq PO QDAY [facility] Senna (Sennosides 1 Tablet) 2 tab PO DAILYP PRN PRN Reason: Constipation Sodium Chloride (0.9 % Sodium Chloride 10 Ml Syringe) 10 ml IV Q8 [facility] Last Admin: 08/24/21 05:00 Dose: 10 ml Documented by: Torsemide (Torsemide 20 Mg Tablet) 20 mg PO BID PRN PRN Reason: edema A/P Narrative A/P Narrative: A: *GIB, likely lower: *PNA b/l: recent covid infection end of July -strep neg *Acute hypoxic respiratory failure: -on 2L NC *Generalized weakness/deconditioning: *h/o diastolic(II) CHF: *Peripheral edema: *DM: On metformin *Chronic pain: *HTN: *CKD III: *GERD: P: -IV abx, SC, -IS/acapella, prn nebs, RT -O2 supp, wean as able -Dr. Cuadra for endoscopy -monitor H&H -Elevate legs while in bed, compression wraps -cont home ARB, diuretics -PT/OT -CM for placement -ppx: SCD (no chemical given GIB) / home ppi DNR Time Spent With Patient Time: Total time spent is greater than 50% in coordination of care (as documented) at patient's floor/unit and/or counseling patient: Total time spent with greater than 50% in coordination of care (as documented) at patient's floor/unit and/or counseling patient:: 35 - 50 minutes QUALITY VTE Deep Vein Thrombosis/Pulmonary Embolism Present on Admission: No
[2021-08-24] MEDS: PANTOPRAZOLE 40 MG TABLET PO SCH (07:35)
[2021-08-24] MEDS: INSULIN LISPRO 1 UNIT/0.01 ML UNIT SQ SCH ×4 (07:35→20:28)
[2021-08-24] MEDS ORDERED: PROPOFOL 200 MG/20 ML VIAL IV ONE (07:50)
[2021-08-24] MEDS ORDERED: LIDOCAINE HCL/PF 100 MG/5 ML SYRINGE IV ONE (07:50)
[2021-08-24 08:38] LABS: Band Neutrophils % 2 % (0-10); Eosinophils % (Manual) 3 % (0-7); Lymphocytes % 15 % (15-49); Monocytes % (Manual) 12 % (1-12); Platelet Estimate NORMAL (Normal); RBC Morphology NORMAL (Normal); Segmented Neutrophils % 68 % (38-78)
--- NOTE | 2021-08-24 08:47 | EGD Procedure Note ---
EGD Procedure Notes Procedure Information Patient information: Note initiated : 08/24/21 at 8:45 am Patient: Omar Leal 89 y/o M admitted on 08/23/21 for rectal bleeding. Pre-op diagnosis general: GI bleed Post-Op Diagnosis general: Same Date of Procedure: 08/24/21 Procedure: Esophogogastroduodenoscopy Procedure Narrative: After risk benefits and alternatives to the procedure were discussed with the patient at length the verbalized understanding and desire to continue with the procedure. Patient was taken to endoscopy. Surgical timeout was taken to verify patient and procedure being performed sedation was administered by anesthesia. An adult gastroscope was entered and advanced under direct vision into the second portion of the duodenum. The antrum was fully inspected, the scope was retroflexed in the stomach. Full examination revealed normal duodenum other than a duodenal diverticula without evidence of bleed, healed antral ulcer without evidence of active bleed. Small hiatal hernia otherwise stomach was within normal limits without evidence of bleed. GE junction was at 35 cm and the esophagus was normal on full exam. EBL none. Patient tolerated procedure well. Assessment: Duodenal diverticula. Healed antral ulcer. Small hiatal hernia. No evidence of bleed.
--- NOTE | 2021-08-24 08:52 | Colonoscopy Procedure Note ---
Colonoscopy Procedure Notes Procedure Information Patient information: Note initiated : 08/24/21 at 8:47 am Patient: Omar Leal 89 y/o M admitted on 08/23/21 for rectal bleeding. Pre-op diagnosis general: GI bleed Post-op diagnosis general: Same Date of Procedure: 08/24/21 Procedure: Colonoscopy with Bx Procedure narrative: After risk benefits and alternatives to the procedure were discussed with the patient at length he verbalized understanding and desire to continue with the procedure. Patient was taken to endoscopy and placed supine on the endoscopy table. Conscious sedation was administered throughout the case by anesthesia. Digital rectal exam was performed which was within normal limits. An adult colonoscope was advanced under direct vision to the cecum which was identified by the sauk-suiattle's foot, the appendiceal orifice and opening to the terminal ileum. Full exam upon removal of scope was significant for evidence of bright red blood in the lower half of the colon, prior partial colectomy, 1 cm polyp in the mid transverse colon, this was removed with snare biopsy. This did not have evidence of active bleed. Scattered diverticulosis around the area where there was blood, however no active bleeding from diverticula was identified. Withdrawal time was >8 min. Retroflexion in the rectum was within normal limits. EBL: Minimal Assessment: Evidence of prior colectomy. Scattered diverticulosis likely source of bleed, however no active bleed identified. Mild internal hemorrhoids without evidence of bleed. 1 cm polyp, removed with cold snare biopsy.
--- NOTE | 2021-08-24 08:55 | General Surgery Progress Note ---
SUBJECTIVE Subjective Patient information: Note initiated : 08/24/21 at 8:52 am Service Date, if different from initiated Date: [] Patient: Omar Leal 89 y/o M admitted on 08/23/21 for rectal bleeding. Chief Complaint: [] Interval history: Over night events noted, hemoglobin has drifted from 14-10. EGD and colonoscopy today with evidence of bright red blood in colon without obvious source other than scattered diverticulosis. Constitutional Vitals: Vital Signs Temp Pulse Resp BP Pulse Ox 98.1 F 85 21 108/66 90 08/24/21 08:35 08/24/21 08:45 08/24/21 08:45 08/24/21 08:45 08/24/21 08:45 Period Temp Pulse Resp BP Sys/Avilez Pulse Ox Last 24 Hr 97.4 F-98.4 F 68-94 -22 96-128/49-78 90-99 Intake and Output 08/23/21 08/24/21 08/24/21 21:59 05:59 13:59 Intake Total 750 4390 Output Total 1550 3127 Balance -800 1263 Weight 186 lb 7 oz Intake & Output: Intake & Output 08/23/21 08/24/21 08/24/21 21:59 05:59 13:59 Intake Total 750 4390 Output Total 1550 3127 Balance -800 1263 Weight 186 lb 7 oz Intake: Nourishment/Supplement quantity 4000 (ml) IV 300 150 Zithromax 500 mg In Dextrose 5% 250 in Water 250 ml @ 250 mls/hr IV Q24H [facility] Rx#:[id number] Zosyn 2.25 gm In Dextrose 5% in 50 150 Water 50 ml @ 100 mls/hr IV Q6H [facility] Rx#:[id number] Oral 240 GI Tube Flush 450 Output: Void Amount 75 # of times incontinent of urine 2 Urine/Stool Mix 650 Stool 900 3050 Other: Nourishment/Supplement name Golytely Urine Appearance Clear Urine Color Straw Urine Odor Strong Stool Size Large Stool Color Dark Red Blood Dark Red Blood Stool Consistency Liquid # Bowel Movements 1 # of times incontinent of 2 Bowels A/P Assessment and plan (1) Acute lower GI bleeding: Plan: Lower GI bleed, likely from diverticulosis. Patient may need tagged RBC scan and interventional radiology for superselective embolization if bleed does not stop. Would continue to hold anticoagulation. Status: Acute Time Spent With Patient Time: Total time spent is greater than 50% in coordination of care (as documented) at patient's floor/unit and/or counseling patient:
[2021-08-24] MEDS ORDERED: LOSARTAN 50 MG TABLET PO SCH (09:00)
[2021-08-24] MEDS: METOLAZONE 2.5 MG TABLET PO SCH (10:42)
[2021-08-24] MEDS: AZITHROMYCIN 500 MG in DEXTROSE 5% IN WATER 250 ML IV SCH (12:10)
[2021-08-24] MEDS: POTASSIUM CHLORIDE 10 MEQ TABLET PO SCH (12:10)
[2021-08-24 14:31] LABS: Hematocrit 30.4 % (40.1-51.0); Hemoglobin 9.4 g/dL (13.7-17.5)
[2021-08-24] MEDS: oxyCODONE/APAP 10/325MG TABLET PO PRN (17:47)
[2021-08-24 20:41] LABS: Hematocrit 32.6 % (40.1-51.0); Hemoglobin 10.2 g/dL (13.7-17.5)
[2021-08-25] MEDS: HYDROcodone/APAP 10/325MG TABLET PO PRN ×2 (00:19→04:48)
[2021-08-25] MEDS: PIPERACILLIN SODIUM/TAZOBACTAM 2.25 GM in DEXTROSE 5% IN WATER 50 ML IV SCH ×3 (00:19→14:11)
[2021-08-25] MEDS ORDERED: NITROGLYCERIN 0.4 MG TAB.SUBL SL PRN (04:21)
[2021-08-25] MEDS ORDERED: ASPIRIN 81 MG TAB.CHEW CHEWED ONE (04:21)
[2021-08-25] MEDS ORDERED: 0.9 % SODIUM CHLORIDE 1,000 ML IV SCH (04:30)
[2021-08-25] MEDS: PANTOPRAZOLE 40 MG TABLET PO SCH ×2 (04:49→07:43)
[2021-08-25 05:34] LABS: Basophils # (Auto) 0.04 K/mcL (0.00-0.30); Basophils % (Auto) 0.4 % (0.0-2.0); Eosinophils # (Auto) 0.34 K/mcL (0.00-0.70); Eosinophils % (Auto) 3.5 % (0.0-7.0); Hematocrit 35.7 % (40.1-51.0); Hemoglobin 10.6 g/dL (13.7-17.5); Lymphocytes # (Auto) 1.16 K/mcL (1.50-4.80); Lymphocytes % (Auto) 11.9 % (15.5-49.0); Mean Cell Volume 106.6 fL (80.0-100.0); Mean Corpuscular HGB Conc 29.7 g/dL (31.0-36.0); Mean Platelet Volume 10.2 fL (7.4-10.4); Monocytes # (Auto) 1.35 K/mcL (0.10-0.90); Monocytes % (Auto) 13.8 % (1.0-12.0); Neutrophils % (Auto) 70.4 % (38.0-78.0); Platelet Count 158 K/mcL (140-440); RBC 3.35 M/mcL (4.63-6.08); Red Cell Distribution Width 13.1 % (11.5-14.5); WBC 9.8 K/mcL (4.5-11.0)
[2021-08-25 05:43] LABS: ALT/SGPT < 5 U/L (<40); AST/SGOT 16 U/L (<40); Albumin 2.6 gm/dL (3.2-5.2); Albumin/Globulin Ratio 0.8 (1.0-2.3); Alkaline Phosphatase 50 U/L (39-117); Bilirubin,Direct < 0.2 mg/dL (0-0.3); Bilirubin,Total 0.5 mg/dL (0.1-1.0); Blood Urea Nitrogen 9 mg/dL (8-23); Calcium 8.2 mg/dL (8.6-10.4); Carbon Dioxide 23 mmol/L (22-30); Chloride 101 mmol/L (96-108); Globulin 3.3 gm/dL (2.2-3.7); Glomerular Filtration Rate 67; Glucose 120 mg/dL (70-105); Lactate Dehydrogenase 364 U/L (135-225); Phosphorous 2.2 mg/dL (2.5-4.5); Triglycerides 82 mg/dL (<150); Uric Acid 4.2 mg/dL (2.5-8.0)
[2021-08-25] MEDS: 0.9 % SODIUM CHLORIDE 10 ML SYRINGE IV SCH ×2 (05:45→14:12)
[2021-08-25 06:01] LABS: Creatine Kinase MB 2.8 ng/mL (<6.7)
[2021-08-25 06:03] LABS: ALT/SGPT 5 U/L (<40); AST/SGOT 16 U/L (<40); Albumin 2.6 gm/dL (3.2-5.2); Albumin/Globulin Ratio 0.8 (1.0-2.3); Alkaline Phosphatase 50 U/L (39-117); Bilirubin,Total 0.6 mg/dL (0.1-1.0); Blood Urea Nitrogen 9 mg/dL (8-23); Calcium 8.2 mg/dL (8.6-10.4); Carbon Dioxide 21 mmol/L (22-30); Chloride 101 mmol/L (96-108); Creatine Kinase 52 U/L (24-195); Globulin 3.3 gm/dL (2.2-3.7); Glomerular Filtration Rate 67; Glucose 120 mg/dL (70-105)
--- NOTE | 2021-08-25 07:31 | Internal Med Progress Note ---
SUBJECTIVE Subjective Patient information: Note initiated : 08/25/21 at 7:29 am Service Date, if different from initiated Date: [] Patient: Omar Leal 89 y/o M admitted on 08/23/21 for rectal bleeding. Chief Complaint: [] Interval history: History of present illness: Mr. Leal is a 89 year old M Presents today with rectal bleeding. Per the he seems to be better historian and her . She states that yesterday he developed bleeding while he was having bowel movement yesterday and she said it was mixed in with the stool. She said it is neither bright red or melanotic. He complains of some generalized achy abdominal pain. He had another bloody bowel movement this morning and then another 1 not too long after that. CT scan of the abdomen was done which I believe did not show anything significant although waiting for the official report. He is also has recently had COVID and has been getting over that however he has had a worsening cough for the past few days. He denies shortness of breath. Chest x-ray in the ED showed bilateral pneumonia and he was hypoxic in the 80s on room air. Cough is productive of thick green phlegm. He is generally weak and seems to have been slowly declining over the past year. He uses a cane or walker to ambulate but has been using the walker more lately. Dr. Cuadra was contacted for the GI bleed regarding endoscopy. Patient started on antibiotics. 08/24 Large amount of bloody stool last night. hemoglobin down to 10.3 from 12.5 yesterday morning. No shortness of breath. Going for endoscopy this morning. Weak and tired but slept okay. 08/25 Patient developed symptomatic 17s run of V. tach this morning resulting in chest pain during the arrhythmia, a blood pressure of 96/63 at around 6 AM. His oxygen saturation did not change although he was on 6 L oxygen mask already. H is troponin at this time was within the i-STAT range of 0.08 with a repeat of 0.02. Magnesium was within normal limits. Several hours earlier at 4:30 patient had a bloody bowel movement on the commode and then got up to the chair and then had an brief episode of severe chest pain described as a crushing pain nonradiating, at that time he was not on artificial fly tier so we do not know if it was a V. tach episode. But during this episode he did require increased oxygen from 2 to 6 L. His blood pressure remained within normal limits during episode. EKG after episode showed A. fib. EKG read as atrial fibrillation which he has a history of but has declined anticoagulation in the past because of history of GI bleeding. I also found he has a history of Vtach on old cario notes, with one note mentioning mexiletine but the patient refused because he did not want to be in the hospital for 3 days while being monitored. Patient has not been on any AV cristine blockers or other antiarrhythmics that I can see. Patient continues to have GI bleeding but presently hemoglobin still remains in the 10's, check an H&H now. Patient denies shortness of breath. Has occasional cough. Review of Systems: denies headache/fever/chills/nausea/vomiting/chest or abdominal pain. Otherwise see above. Constitutional Vitals: Vital Signs Temp Pulse Resp BP Pulse Ox 98.4 F 80 18 114/72 92 08/24/21 23:41 08/25/21 04:52 08/25/21 04:52 08/25/21 04:30 08/25/21 04:52 Period Temp Pulse Resp BP Sys/Avilez Pulse Ox Last 24 Hr 97.2 F-98.4 F 75-96 14-22 96-118/49-78 86-99 Intake and Output 08/24/21 08/25/21 08/25/21 21:59 05:59 13:59 Intake Total 1790 50 Output Total 750 2200 Balance 1040 -2150 Weight 85.82 kg Intake & Output: Intake & Output 08/24/21 08/25/21 08/25/21 21:59 05:59 13:59 Intake Total 1790 50 Output Total 750 2200 Balance 1040 -2150 Weight 85.82 kg Intake: IV 350 50 Zithromax 500 mg In Dextrose 5% 250 in Water 250 ml @ 250 mls/hr IV Q24H [facility] Rx#:[id number] Zosyn 2.25 gm In Dextrose 5% in 100 50 Water 50 ml @ 100 mls/hr IV Q6H [facility] Rx#:[id number] Oral 1240 GI Tube Flush 200 Output: Void Amount 350 Stool 400 2200 Other: Urine Appearance Clear Urine Color Bright Yellow Urine Odor Strong Stool Size Moderate Stool Color Dark Red Blood Bright Red Blood Stool Consistency Liquid Liquid Watery Loose Exam: General: Alert, Awake, No acute Distress Eyes/N/T: EOMI, , Head/Neck: neck supple, CV: Regular with occasional irregularity,, No murmurs, Pulm: Right side rhonchi/rales, no wheezing Abd: soft, generalized tenderness, +BS x4 Ext: no clubbing/cyanosis, b/l LE chronic 1+ edema Neuro: Alert, no focal deficits, moves all extremities, Skin: warm/dry, pale OBJ DATA Labs CBC & Chem 7: 08/25/21 08:45 08/25/21 04:48 Labs: Abnormal Lab Results 08/25/21 08/25/21 08/25/21 04:48 04:43 04:42 RBC 3.35 L Hgb 10.6 L Hct 35.7 L MCV 106.6 H MCHC 29.7 L Lymph % (Auto) 11.9 L Swift % (Auto) 13.8 H Lymph # (Auto) 1.16 L Swift # (Auto) 1.35 H Band Neutrophils % Lymphocytes % PT INR Carbon Dioxide 21 L Creatinine POC Creatinine Glucose 120 H 120 H Calcium 8.2 L 8.2 L Phosphorus 2.2 L Lactate Dehydrogenase 364 H C-Reactive Protein Total Protein Albumin 2.6 L 2.6 L Albumin/Globulin Ratio 0.8 L 0.8 L Procalcitonin 08/24/21 08/24/21 08/24/21 20:18 14:05 05:37 RBC Hgb 10.2 L 9.4 L Hct 32.6 L 30.4 L MCV MCHC Lymph % (Auto) Swift % (Auto) Lymph # (Auto) Swift # (Auto) Band Neutrophils % Lymphocytes % PT INR Carbon Dioxide Creatinine POC Creatinine Glucose 121 H Calcium 8.0 L Phosphorus 2.3 L Lactate Dehydrogenase C-Reactive Protein Total Protein 5.5 L Albumin 2.6 L Albumin/Globulin Ratio 0.9 L Procalcitonin 08/24/21 08/24/21 08/24/21 05:37 05:37 03:18 RBC 3.31 L Hgb 10.3 L 11.0 L Hct 32.4 L 35.9 L MCV MCHC Lymph % (Auto) Swift % (Auto) Lymph # (Auto) Swift # (Auto) Band Neutrophils % Lymphocytes % PT INR Carbon Dioxide Creatinine POC Creatinine Glucose Calcium Phosphorus Lactate Dehydrogenase C-Reactive Protein 4.30 H Total Protein Albumin Albumin/Globulin Ratio Procalcitonin 08/23/21 08/23/21 08/23/21 22:46 08:32 08:19 RBC Hgb 11.6 L Hct 38.4 L MCV MCHC Lymph % (Auto) Swift % (Auto) Lymph # (Auto) Swift # (Auto) Band Neutrophils % Lymphocytes % PT INR Carbon Dioxide Creatinine 1.5 H POC Creatinine 1.4 H Glucose 125 H Calcium Phosphorus Lactate Dehydrogenase C-Reactive Protein Total Protein Albumin 3.1 L Albumin/Globulin Ratio Procalcitonin 08/23/21 08/23/21 08/23/21 08:19 08:19 08:09 RBC 4.02 L Hgb 12.5 L Hct 39.3 L MCV MCHC Lymph % (Auto) 10.6 L Swift % (Auto) 13.2 H Lymph # (Auto) 0.97 L Swift # (Auto) 1.21 H Band Neutrophils % Lymphocytes % PT 15.5 H INR 1.2 H Carbon Dioxide Creatinine POC Creatinine Glucose Calcium Phosphorus Lactate Dehydrogenase C-Reactive Protein Total Protein Albumin Albumin/Globulin Ratio Procalcitonin 0.11 H 08/23/21 08/23/21 08:09 08:09 RBC Hgb Hct MCV MCHC Lymph % (Auto) Swift % (Auto) Lymph # (Auto) Swift # (Auto) Band Neutrophils % 11 H Lymphocytes % 9 L PT INR Carbon Dioxide Creatinine POC Creatinine Glucose Calcium Phosphorus Lactate Dehydrogenase C-Reactive Protein 2.80 H Total Protein Albumin Albumin/Globulin Ratio Procalcitonin Meds: Medications Acetaminophen (Acetaminophen 325 Mg Tablet) 650 mg PO Q6HP PRN; Protocol PRN Reason: Per Pain Protocol/Fever > 101 Hydrocodone Bitart/Acetaminophen (Hydrocodone/Apap 10/325mg Tablet) 1 tab PO Q4HP PRN; Protocol PRN Reason: Per Pain Protocol Last Admin: 08/25/21 04:48 Dose: 1 tab Documented by: Albuterol/Ipratropium (Ipratropium/Albuterol 3 Ml Ampul.Neb) 3 ml NEB Q4HP PRN PRN Reason: Shortness Of Breath Dextrose (Dextrose 50% 50 Ml Vial) 0 ml IV UD PRN PRN Reason: Per Sliding Scale Diagnostic Test (Pha) (Accu-Chek 1 Each Strip) 1 each FS [facility] Last Admin: 08/24/21 20:26 Dose: 1 each Documented by: Glucose (Dextrose 31 Gm Oral.Susp) 15 gm PO PRN PRN PRN Reason: Hypoglycemia Potassium Chloride 40 meq/ (Dextrose) 520 mls @ 130 mls/hr IV UD PRN PRN Reason: Potassium < 3 Magnesium Sulfate (Magnesium Sulfate) 2 gm in 50 mls @ 50 mls/hr IV UD PRN PRN Reason: Magnesium </= 1.6 Piperacillin Sod/Tazobactam (Sod 2.25 gm/ Dextrose) 50 mls @ 100 mls/hr IV Q6H [facility] Last Infusion: 08/25/21 00:49 Dose: Infused Documented by: Azithromycin 500 mg/ Dextrose 250 mls @ 250 mls/hr IV Q24H [facility]; Protocol Stop: 08/25/21 09:59 Last Infusion: 08/24/21 14:30 Dose: Infused Documented by: Sodium Chloride (Sodium Chloride 0.9%) 1,000 mls @ 0 mls/hr IV .Q0M [facility] Insulin Human Lispro (Insulin Lispro 1 Unit/0.01 Ml Unit) 0 unit SQ [facility]; Protocol Last Admin: 08/24/21 20:28 Dose: 2 unit Documented by: Losartan Potassium (Losartan 50 Mg Tablet) 50 mg PO QDAY [facility] Last Admin: 08/24/21 10:42 Dose: Not Given Documented by: Metolazone (Metolazone 2.5 Mg Tablet) 2.5 mg PO QDAY [facility] Last Admin: 08/24/21 10:42 Dose: Not Given Documented by: Nitroglycerin (Nitroglycerin 0.4 Mg Tab.Subl) 0.4 mg SL Q5M PRN PRN Reason: Chest Pain Ondansetron HCl (Ondansetron 4 Mg/2 Ml Vial) 4 mg IV Q4HP PRN PRN Reason: Nausea And Vomiting Oxycodone/Acetaminophen (Oxycodone/Apap 10/325mg Tablet) 1 tab PO Q12H PRN; Protocol PRN Reason: pain Last Admin: 08/24/21 17:47 Dose: 1 tab Documented by: Pantoprazole Sodium (Pantoprazole 40 Mg Tablet) [facility] Last Admin: 08/25/21 04:49 Dose: 40 mg Documented by: Polyethylene Glycol (Polyethylene Glycol 3350 17 Gm Packet) 17 gm PO DAILYP PRN PRN Reason: Constipation Potassium Chloride (Potassium Chloride 20 Meq Tablet) 40 meq PO UD PRN PRN Reason: Potssium is 3-3.5 Potassium Chloride (Potassium Chloride 20 Meq Tablet) 40 meq PO UD PRN PRN Reason: Potassium < 3 Potassium Chloride (Potassium Chloride 10 Meq Tablet) 10 meq PO QDAY [facility] Last Admin: 08/24/21 12:10 Dose: 10 meq Documented by: Senna (Sennosides 1 Tablet) 2 tab PO DAILYP PRN PRN Reason: Constipation Sodium Chloride (0.9 % Sodium Chloride 10 Ml Syringe) 10 ml IV Q8 [facility] Last Admin: 08/25/21 05:45 Dose: 10 ml Documented by: Torsemide (Torsemide 20 Mg Tablet) 20 mg PO BID PRN PRN Reason: edema A/P Narrative A/P Narrative: vt A: *GIB, likely lower: continues -EGD unremarkable, Colonoscopy with bright red blood w/o obvious source other than scattered diverticulosis -h/o partial colectomy for diverticulosis bleeding ~20years ago *Vtach(h/o) with CP: -trop wnl istat range of 0.08, repeat 0.02 *Permanent Afib: per old cardio notes, he continued to decline anticoagulation, likely from h/o GI bleeds *PNA b/l: recent covid infection end of July -strep neg *Acute hypoxic respiratory failure: -on 3-4L oxymask *Generalized weakness/deconditioning: *h/o diastolic(II) CHF: *Peripheral edema: *DM: On metformin *Chronic pain: *HTN: *CKD III: *GERD: P: -cxr -IV abx, SC, -IS/acapella, prn nebs, RT -O2 supp, wean as able -will need to transfer for GI and cardio -tele monitoring -monitor H&H -Elevate legs while in bed, compression wraps -start BB, hold ARB and monitor BP, diuretics -PT/OT -ST eval -CM for placement -ppx: SCD (no chemical given GIB) / home ppi DNR Time Spent With Patient Time: Total time spent is greater than 50% in coordination of care (as documented) at patient's floor/unit and/or counseling patient: Total time spent with greater than 50% in coordination of care (as documented) at patient's floor/unit and/or counseling patient:: Greater than 70 minutes QUALITY VTE Deep Vein Thrombosis/Pulmonary Embolism Present on Admission: No
[2021-08-25] MEDS: INSULIN LISPRO 1 UNIT/0.01 ML UNIT SQ SCH ×2 (07:43→12:43)
[2021-08-25] MEDS: METOLAZONE 2.5 MG TABLET PO SCH (08:31)
[2021-08-25] MEDS ORDERED: METOPROLOL TARTRATE 5 MG/5 ML VIAL IV PRN (08:43)
[2021-08-25] MEDS ORDERED: METOPROLOL TARTRATE 25 MG TABLET PO SCH (09:00)
--- NOTE | 2021-08-25 09:13 | XRay Report ---
CLINICAL INFORMATION: Pneumonia COMPARISON: Two-view chest 05/04/2018 and portable chest at 2021 TECHNIQUE: Portable FINDINGS: Mild cardiomegaly is unchanged. Mediastinum and pulmonary vessels are normal. Moderate patchy infiltrates in the mid and lower lungs show slight improved aeration since yesterday's exam. Small bilateral pleural effusions are unchanged IMPRESSION: Moderate patchy infiltrates in both mid and lower lungs improving since chest x-ray yesterday. Consider aspiration or, less likely, infection. Interpreted and Authenticated by: Lm Brown 08/25/21
[2021-08-25 09:19] LABS: Hematocrit 30.2 % (40.1-51.0); Hemoglobin 9.6 g/dL (13.7-17.5)
[2021-08-25] MEDS: POTASSIUM CHLORIDE 10 MEQ TABLET PO SCH (09:51)
[2021-08-25] MEDS: AZITHROMYCIN 500 MG in DEXTROSE 5% IN WATER 250 ML IV SCH (10:51)
[2021-08-25] MEDS ORDERED: AMIODARONE 360 MG in PREMIX 1 BAG IV SCH ×2 (11:30→17:30)
[2021-08-25] MEDS ORDERED: 0.9 % SODIUM CHLORIDE 250 ML IV SCH (11:45)
[2021-08-25] MEDS ORDERED: 0.9 % SODIUM CHLORIDE 250 ML IV ONE (11:50)
--- NOTE | 2021-08-25 12:07 | Transfer Summary ---
Discharge Provider Provider IMPORTANT FOLLOW-UP INFORMATION FOR PCP: Patient information: Note initiated : 08/25/21 at 12:04 pm Service Date, if different from initiated Date: [] Patient: Omar Leal 89 y/o M admitted on 08/23/21 for rectal bleeding. Chief Complaint: [] Date of admission: 08/23/21 15:12 Discharge date: 08/25/21 Primary care physician: Lm Berry DO Consults: 08/23/21 Consult to Physician [CONS] Stat Comment: Consulting Provider: Trevon Tomas Reason For Exam: Physician to Consult 08/23/21 15:38 Consult to Physician [CONS] Urgent Comment: gi bleed Consulting Provider: José Miguel Cuadra Reason For Exam: Physician to Consult COURSE Hospital Course Hospital course: History of present illness: Mr. Leal is a 89 year old M Presents today with rectal bleeding. Per the he seems to be better historian and her . She states that yesterday he developed bleeding while he was having bowel movement yesterday and she said it was mixed in with the stool. She said it is neither bright red or melanotic. He complains of some generalized achy abdominal pain. He had another bloody bowel movement this morning and then another 1 not too long after that. CT scan of the abdomen was done which I believe did not show anything significant although waiting for the official report. He is also has recently had COVID and has been getting over that however he has had a worsening cough for the past few days. He denies shortness of breath. Chest x-ray in the ED showed bilateral pneumonia and he was hypoxic in the 80s on room air. Cough is productive of thick green phlegm. He is generally weak and seems to have been slowly declining over the past year. He uses a cane or walker to ambulate but has been using the walker more lately. Dr. Cuadra was contacted for the GI bleed regarding endoscopy. Patient started on antibiotics. 08/24 Large amount of bloody stool last night. hemoglobin down to 10.3 from 12.5 yesterday morning. No shortness of breath. Going for endoscopy this morning. Weak and tired but slept okay. 08/25 Patient developed symptomatic 17s run of V. tach this morning resulting in chest pain during the arrhythmia, a blood pressure of 96/63 at around 6 AM. His oxygen saturation did not change although he was on 6 L oxygen mask already. His troponin at this time was within the i-STAT range of 0.08 with a repeat of 0.02. Magnesium was within normal limits. Several hours earlier at 4:30 patient had a bloody bowel movement on the commode and then got up to the chair and then had an brief episode of severe chest pain described as a crushing pain nonradiating, at that time he was not on buttonhole maker so we do not know if it was a V. tach episode. But during this episode he did require increased oxygen from 2 to 6 L. His blood pressure remained within normal limits during episode. EKG after episode showed A. fib. EKG read as atrial fibrillation which he has a history of but has declined antic oagulation in the past because of history of GI bleeding. I also found he has a history of Vtach on old cario notes, with one note mentioning mexiletine but the patient refused because he did not want to be in the hospital for 3 days while being monitored. Patient has not been on any AV cristine blockers or other antiarrhythmics that I can see. Patient continues to have GI bleeding but presently hemoglobin still remains in the 10's, check an H&H now. Patient denies shortness of breath. Has occasional cough. Discussed the case of V. tach with Dr. Mcrae who recommended IV Amio drip, no bolus. Talked with Dr. Lemus who would be willing to see the patient but [facility] does not have GI available so patient would not be accepted by hospitalist team. Will look for other facilities transfer the patient to. Discussed the case with hospitalist at [facility] Ghazala Henriquez graciously accepted patient's care. Discharge diagnosis: GI bleed pneumonia V. tach acute hypoxic respiratory failure Secondary discharge diagnosis: A. fib generalized weakness deconditioning history of diastolic heart failure peripheral edema diabetes chronic pain hypertension chronic kidney disease GERD Time Spent with Patient Time attestation: Total time spent providing and/or coordinating discharge services: Time spent: Greater than 30 minutes EXAM Constitutional Vitals: Temp Pulse Resp BP Pulse Ox 98.0 F 86 20 91/56 94 08/25/21 11:30 08/25/21 11:30 08/25/21 11:30 08/25/21 11:30 08/25/21 11:30 Discharge Data Data Completed and Pending Labs on day of discharge: Labs from last 24 hours 08/25/21 08/25/21 08/25/21 08:48 08:45 04:48 WBC RBC Hgb 9.6 L Hct 30.2 L MCV MCH MCHC RDW Plt Count MPV Neut % (Auto) Lymph % (Auto) Gila % (Auto) Eos % (Auto) Baso % (Auto) Lymph # (Auto) Gila # (Auto) Eos # (Auto) Baso # (Auto) Absolute Neutrophils APTT Sodium 136 Potassium 4.5 Chloride 101 Carbon Dioxide 21 L Anion Gap 14.0 BUN 9 Creatinine 1.0 GFR Calculation 67 Glucose 120 H Uric Acid Calcium 8.2 L Phosphorus Magnesium Total Bilirubin 0.6 Direct Bilirubin GGT AST 16 ALT 5 Alkaline Phosphatase 50 Lactate Dehydrogenase Total Creatine Kinase 52 CK-MB (CK-2) 2.8 Total Protein 5.9 Albumin 2.6 L Globulin 3.3 Albumin/Globulin Ratio 0.8 L Triglycerides Hold Red Top Pending POC Troponin I 0.02 08/25/21 08/25/21 08/25/21 04:48 04:47 04:43 WBC RBC Hgb Hct MCV MCH MCHC RDW Plt Count MPV Neut % (Auto) Lymph % (Auto) Gila % (Auto) Eos % (Auto) Baso % (Auto) Lymph # (Auto) Gila # (Auto) Eos # (Auto) Baso # (Auto) Absolute Neutrophils APTT 30.3 Sodium 134 Potassium 4.5 Chloride 101 Carbon Dioxide 23 Anion Gap 10.0 BUN 9 Creatinine 1.0 GFR Calculation 67 Glucose 120 H Uric Acid 4.2 Calcium 8.2 L Phosphorus 2.2 L Magnesium 2.1 Total Bilirubin 0.5 Direct Bilirubin < 0.2 GGT 9 AST 16 ALT < 5 Alkaline Phosphatase 50 Lactate Dehydrogenase 364 H Total Creatine Kinase CK-MB (CK-2) Total Protein 5.9 Albumin 2.6 L Globulin 3.3 Albumin/Globulin Ratio 0.8 L Triglycerides 82 Hold Red Top POC Troponin I 0.08 08/25/21 08/24/21 08/24/21 04:42 20:18 14:05 WBC 9.8 RBC 3.35 L Hgb 10.6 L 10.2 L 9.4 L Hct 35.7 L 32.6 L 30.4 L MCV 106.6 H MCH 31.6 MCHC 29.7 L RDW 13.1 Plt Count 158 MPV 10.2 Neut % (Auto) 70.4 Lymph % (Auto) 11.9 L Gila % (Auto) 13.8 H Eos % (Auto) 3.5 Baso % (Auto) 0.4 Lymph # (Auto) 1.16 L Gila # (Auto) 1.35 H Eos # (Auto) 0.34 Baso # (Auto) 0.04 Absolute Neutrophils 6.86 APTT Sodium Potassium Chloride Carbon Dioxide Anion Gap BUN Creatinine GFR Calculation Glucose Uric Acid Calcium Phosphorus Magnesium Total Bilirubin Direct Bilirubin GGT AST ALT Alkaline Phosphatase Lactate Dehydrogenase Total Creatine Kinase CK-MB (CK-2) Total Protein Albumin Globulin Albumin/Globulin Ratio Triglycerides Hold Red Top POC Troponin I Discharge Plan Patient/Caregiver Discharge Instructions Prescriptions: No Action (DME) blood-glucose meter [Run The CampaignTouch Ultra2 Meter] kit See Dose Instructions .ROUTE .MEDSUPPLY Qty: 1 0RF Dose Instruction: As directed Rx Instructions: testing blood glucose once daily (DME) lancets [OneTouch Delica Lancets] 30 gauge misc See Dose Instructions .ROUTE .MEDSUPPLY Qty: 300 4RF Dose Instruction: As directed Rx Instructions: once daily (DME) blood sugar diagnostic [OneTouch Ultra Test] strip See Dose Instructions .ROUTE .MEDSUPPLY Qty: 300 4RF Dose Instruction: As directed Rx Instructions: testing blood glucose once daily metolazone 2.5 mg tablet 2.5 mg PO QDAY Qty: 90 1RF torsemide 20 mg tablet 20 mg PO BID PRN (Reason: edema) Qty: 90 1RF Rx Instructions: at least once daily losartan 50 mg tablet 50 mg PO QDAY Qty: 90 3RF metformin 500 mg tablet extended release 24 hr 500 mg PO QPM Qty: 90 3RF clotrimazole-betamethasone 1-0.05 % cream 1 applic TOPICAL BID 14 Days Qty: 45 0RF Rx Instructions: Apply to affected area on groin 2 weeks on, 2 weeks off. Use terbinafine spray as needed during 2 weeks off period. oxycodone-acetaminophen 10-325 mg tablet 1 tab PO Q12H PRN (Reason: pain) Qty: 56 0RF ascorbic acid (vitamin C) 500 mg capsule, extended release 500 mg PO QDAY 0RF omeprazole 20 mg capsule,delayed release(DR/EC) 20 mg PO QDAY 0RF potassium chloride 10 mEq tablet extended release 10 meq PO QDAY Qty: 1 0RF Label Comments: Patient takes three pills 3x/week when he takes water pill, one every day with evening meal loperamide [Anti-Diarrheal (loperamide)] 2 mg capsule 2 mg PO Q6H PRN (Reason: loose stool) Qty: 30 1RF Rx Instructions: 4 mg, followed by 2 mg after each loose stool; maximum: 16 mg/day Once diarrhea is controlled, use lowest dosage required to control symptoms; usual maintenance dose: 4 to 8 mg/day as a single dose mometasone 50 mcg/actuation spray,non-aerosol 2 spray intranasal QDAY Qty: 17 3RF Rx Instructions: administer into each nostril (DME) 4ww with seat See Rx Instructions .Route .MEDSUPPLY Qty: 1 0RF Rx Instructions: As directed (DME) compr.stocking,knee,long,x-lrg Misc See Rx Instructions .ROUTE .MEDSUPPLY Qty: 2 0RF Rx Instructions: As directed hydrocodone-acetaminophen 10-325 mg tablet 1 tab PO Q4 0RF Follow Up Plan Follow up with: Lm Berry DO [Primary Care Provider] - Patient Disposition: [facility] Prognosis: Fair Overall status at discharge: patient is not back to baseline Discharge Orders: Discharge Order (Routine); Ordered 08/25/21 Ordered By: Trevon JONES VTE Deep Vein Thrombosis/Pulmonary Embolism Present on Admission: No
--- NOTE | 2021-08-25 13:14 | General Surgery Progress Note ---
SUBJECTIVE Subjective Patient information: Note initiated : 08/25/21 at 1:11 pm Service Date, if different from initiated Date: [] Patient: Omar Leal 89 y/o M admitted on 08/23/21 for rectal bleeding. Chief Complaint: [] Principal diagnosis: Lower GI bleed Interval history: Overnight events noted. Constitutional Vitals: Vital Signs Temp Pulse Resp BP Pulse Ox 98.4 F 52 L 13 85/64 95 08/25/21 12:50 08/25/21 13:01 08/25/21 13:01 08/25/21 13:01 08/25/21 13:01 Period Temp Pulse Resp BP Sys/Avilez Pulse Ox Last 24 Hr 97.9 F-98.4 F 52-86 13-32 84-118/55-78 86-99 Intake and Output 08/24/21 08/25/21 08/25/21 21:59 05:59 13:59 Intake Total 1790 50 650 Output Total 750 2200 Balance 1040 -2150 650 Weight 189 lb 3.2 oz Intake & Output: Intake & Output 08/24/21 08/25/21 08/25/21 21:59 05:59 13:59 Intake Total 1790 50 650 Output Total 750 2200 Balance 1040 -2150 650 Weight 189 lb 3.2 oz Intake: IV 350 50 50 Zithromax 500 mg In Dextrose 5% 250 in Water 250 ml @ 250 mls/hr IV Q24H [facility] Rx#:[id number] Zosyn 2.25 gm In Dextrose 5% in 100 50 50 Water 50 ml @ 100 mls/hr IV Q6H [facility] Rx#:[id number] Oral 1240 600 GI Tube Flush 200 Output: Void Amount 350 Stool 400 2200 Other: Meal Breakfast Percent of Meal Consumed 100% Feeding Ability Assist with Tray Set Up Urine Appearance Clear Urine Color Bright Yellow Urine Odor Strong Stool Size Moderate Stool Color Dark Red Blood Bright Red Blood Stool Consistency Liquid Liquid Watery Loose General appearance: cooperative and no acute distress GI/Abdominal GI/Abdominal exam: Present soft; Absent distended A/P Assessment and plan (1) Acute lower GI bleeding: Assessment and plan: Pleasant 89-year-old gentleman who presented with a GI bleed, EGD colonoscopy significant for likely diverticular bleed, no exact localization. Recommendations: Tagged RBC scans to verify continued bleeding. Interventional radiology for superselective embolization. Due to his age completion colectomy would be high morbidity and mortality. Status: Acute Time Spent With Patient Time: Total time spent is greater than 50% in coordination of care (as documented) at patient's floor/unit and/or counseling patient:
--- NOTE | 2021-08-25 13:59 | EKG ---
[facility] Test Date: 2021-08-25 Pat Name: Omar Leal Department: [facility] Room: 114 Gender: Male Medical Billing Coder: : 1930 Requested By: Trevon Tomas Order Number: [id number] Reading MD: Lm Silverman M.D. Measurements Intervals [place] Rate: 76 P: [place]: QRS: 84 QRSD: 96 T: 12 QT: 389 QTc: 438 Interpretive Statements Atrial fibrillation Borderline T wave abnormalities Electronically Signed On 08-25-2021 13:58:40 PDT by Lm Silverman M.D. /[id number]
== END 2021-08-25 15:04 | disposition short-term general hospital (02) | DRG 377 ==
LOC: ED 07:34 → MEDSUR 15:12 → ICU 08-25 11:44
PROVIDERS: ADMIT Internal Medicine; ATTEND Internal Medicine